=== PATIENT | female | born 1940 | race Caucasian/White ===

== ENCOUNTER → 2024-12-05 14:06 | Outpatient (REF) | payer MEDICARE, SELFPAY | LOC: OLABN 14:06 | PROVIDERS: ATTENDING PHYSICIAN Student in an Organized Health Care Education/Training Program | DX: R09.89 Other specified symptoms and signs involving the circulatory and respiratory systems (principal) | CPT/HCPCS: 87502 ==

== ENCOUNTER 2024-12-10 16:21 | Inpatient (IN) | payer MEDICARE, SELFPAY ==
[2024-12-10] VITALS (33 sets, daily range): BP systolic 99–176; BP diastolic 49–119; PULSE 2–120; BMI 25.9; BMI 24.0
--- NOTE | 2024-12-10 14:06 | ED.GENMED ---
History of Present Illness
<Jazmine Alexander PA-C - Last Filed: 12/10/24 21:33>
General
Chief Complaint: Breathing Problem
Source: patient and ambulance crew
Exam Limitations: clinical condition
Time Seen by Provider: 12/10/24 13:55
Nursing documentation reviewed up to this point in time: agreed with
History of Present Illness
History of Present Illness:
Patient is an 84-year-old female with history hypertension, with pacemaker presented to the emergency department via EMS for shortness of breath. Per EMS�patient tested positive for influenza about 1 week ago and completed a 5-day course of
Tamiflu. Today patient with increasing shortness of breath. She was 80% on room air. Sent to the emergency department.
Patient unable to contribute much to history given clinical condition and shortness of breath.
Patient did receive a DuoNeb and 125 Solu-Medrol en route via EMS.
Past History
<Jazmine Alexander PA-C - Last Filed: 12/10/24 21:33>
Past History
ED Past Medical History: Arrthythmia (A fib), HTN and Other (Osteoarthritis)
ED Past Surgical History: Appendectomy, Cardiac (Pacemaker/defibrillator) and Gynecological
Social History
Tobacco: Former smoker
Alcohol: None
Drug: None
Living: with family
Review of Systems
<Jazmine Alexander PA-C - Last Filed: 12/10/24 21:33>
Review of Systems
Allergies reviewed?: Yes
All Other Systems: ROS reviewed and negative except as documented in HPI and ROS
Phy Exam
<Jazmine Alexander PA-C - Last Filed: 12/10/24 21:33>
Physical Exam
Physical Exam:
Vitals: Hypoxic, tachycardic, tachypneic, hypertensive afebrile.
General: Patient is acutely ill appearing, tachypneic with increased respiratory effort
Skin: Warm and dry, no rashes or lesions
Head: Normocephalic, atraumatic
Eyes: Sclera nonicteric. EOMs intact. No nystagmus.
Throat: Protecting airway
Neck: Normal ROM, no cervical spine tenderness, no meningismus
Cardiac: Tachycardic, irregularly irregular rhythm, no murmurs.
Pulm: Hypoxic O2 80% on room air. Increased respiratory effort. Diminished breath sounds bilaterally with scattered rhonchi.
Abdomen: No abdominal tenderness.
Extremities: No evidence of cyanosis or edema. Palpable distal pulses
Neuro: No focal deficits
Psychiatric: Normal affect.
Scores
<Jazmine Alexander PA-C - Last Filed: 12/10/24 21:33>
Heart Failure Risk
Heart Failure Risk Score: Yes
History of Stroke or TIA: No
History of intubation for respiratory distress: No
Heart rate on ED arrival >/= 110: Yes
SaO2 <90% on arrival on room air: Yes
HR >/=110 during 3min walk test (or too ill to perform test): Yes
ECG has acute ischemic changes: Yes
Urea >/=12mmol/L (BUN 33.6mg/dL): No
Serum CO2>/=35mmol/L: Yes
Troponin I or T elevated to [place] Level (0.4mg/dL): No
NT-proBNP >/=5,000ng/L (5,000pg/ml): Yes
HF Risk Score: 8
Admission Status: VERY HIGH RISK 81.2% Consider admission to hospital
Course
<Jazmine Alexander PA-C - Last Filed: 12/10/24 21:33>
Orders/Labs/Results
Orders:
Orders
12/10/24 14:02
Electrocardiogram (*1) Urgent
Reason for Study: Shortness of Breath
EKG- Treatment ONCE
pacemaker [Interrogate Pacemaker- Treatment] ONCE
Ipratropium/Albuterol Sulfate [Duoneb] 3 ml INH R NOW STA
12/10/24 14:03
Electrocardiogram (*1) Urgent
Reason for Study: Other
Other Reason for Exam: Respiratory Distress
Cardiac Monitoring- Treatment ONCE
IV Insert/Care/Rem.- Treatment PRN
O2 Therapy [RESP] Urgent
Titrate/Wean O2 to maintain O2 sat greater than (%): 93
Special Instructions: TO MAINTAIN CONTINUOUS O2 SATS >/= 93%
Pulse Ox/cont/shift [RESP] Urgent
Quantity: 1
Special Instructions: continuous pulse ox
12/10/24 14:05
CR Chest Portable - 1 View Urgent
Comment:
Reason For Exam: sob, influenza +
Reason Study Needs to be Portable: Patient Unstable
12/10/24 14:12
COVID-19 Antigen Urgent
Source: Nasal Swab
Complete Blood Count/With Diff Urgent
Comprehensive Metabolic Panel Urgent
Lactic Acid Q4H
Comment: CANCEL 2nd LACTIC ACID IF 1st LACTIC ACID IS LESS THAN 2
NT-proBNP Urgent
Troponin I Urgent
Blood Culture Q30M
JACOB Source: Blood/Venous
Specimen Description:
Influenza A+B Rapid Molecular Urgent
JACOB Source: Nasal Swab
Specimen Description:
12/10/24 14:23
Blood Culture Q30M
JACOB Source: Blood/Venous
Specimen Description:
12/10/24 14:35
0.9% Sodium Chloride 1000 ml [Nss] 1,000 ml IV BOLUS
Piperacillin/Tazo 4.5 Gram [Zosyn] 4.5 gram in 100 ml IV NOW
12/10/24 14:37
Arterial Blood Gas Urgent
%Oxygen/Room Air: 80
12/10/24 15:21
Furosemide [Lasix] 40 mg IV NOW STA
12/10/24 15:22
Rectal Temp- Treatment ONCE
12/10/24 15:27
Acetaminophen [Tylenol] 650 mg .ROUTE .STK-MED ONE
Acetaminophen [Tylenol] 650 mg PO NOW STA
12/10/24 15:34
Electrocardiogram (*1) Urgent
Reason for Study: Shortness of Breath
EKG- Treatment ONCE
12/10/24 15:51
Admit/Transfer Patient As Directed
Co-Sign Provider:
Level of Care: Inpatient admission
Assign to:: IMU- Intermediate Care
Physician / Group: Rigo Kingston
Diagnosis: Hypoxic resp failure, bacterial pna
Reason for Hospitalization: Hypoxic resp failure, bacterial pna
Expected length of stay greater than two midnights?: Yes
ELOS- Estimated Length of Stay in days: 3
I certify the patient meets the requirements for IP care: Yes
12/10/24 15:52
PRN Pain Medication Management As Directed
May give lesser potent ordered pain med per pt: Yes
preference::
Protocol:: Medication orders for pain may be administered in a
manner that supports deferring to patient preference
when the pt is:
- Requesting an ordered lesser potent pain medication.
Least to most potent pain medications are defined
as: acetaminophen < NSAID < tramadol < opioids
(morphine, oxycodone, hydromorphone).
- Requesting a lesser dose of the same medication IF
ORDERED.
- Requesting a less intrusive route of administration
if both routes are prescribed by the provider (PO <
IV).
12/10/24 15:54
Code Status As Directed
Resuscitation Status: Full Code
12/10/24 17:18
Troponin I Urgent
12/10/24 20:00
Dexamethasone Sod Phosphate [Decadron] 4 mg IV Q8H
12/10/24 20:33
Acetaminophen [Tylenol] 650 mg PO Q4HPRN PRN
Apixaban [Eliquis] 2.5 mg PO BID
Ipratropium/Albuterol Sulfate [Duoneb] 3 ml INH R QIDPRN PRN
Metoprolol [Lopressor] 25 mg PO BID
Saccharomyces Boulardii [Florastor] 250 mg PO QPM
Vancomycin [Vancocin] 1,750 mg 0.9% Sodium Chloride 500 ml [Nss] 500 ml IV ONCE
12/10/24 20:33
Echo 2D MMode Color/Doppler Routine
Reason for Study: HF
Respiratory Culture/Gram Stain Routine
JACOB Source: Sputum
Specimen Description:
Comment: IF NOT OBTAINED IN ED
Activity As Directed
Activity Level: With Assistance
Intake/ Output As Directed
Frequency: Per unit guidelines
Vital Signs As Directed
Frequency: Per unit guidelines
O2 Therapy [RESP] Routine
Titrate/Wean O2 to maintain O2 sat greater than (%): 88
Speech Therapy Eval & Treat Routine
12/10/24 20:45
Lactic Acid Q4H
Comment: repeat q4 hours x 4 or until less than 2 mmol/L
Venous Blood Gas Routine
%Oxygen/Room Air: NC
12/10/24 22:00
Piperacillin/Tazo 4.5 Gram [Zosyn] 4.5 gram in 100 ml IV Q6H
12/11/24 00:33
Lactic Acid Q4H
Comment: repeat q4 hours x 4 or until less than 2 mmol/L
12/11/24 04:33
Lactic Acid Q4H
Comment: repeat q4 hours x 4 or until less than 2 mmol/L
12/11/24 06:00
Complete Blood Count/No Diff IN AM
12/11/24 08:00
Amiodarone [Pacerone] 200 mg PO DAILY
12/11/24 08:33
Lactic Acid Q4H
Comment: repeat q4 hours x 4 or until less than 2 mmol/L
12/12/24 06:00
Complete Blood Count/No Diff IN AM
12/13/24 06:00
Complete Blood Count/No Diff IN AM
Abnormal Lab Results
12/10/24 12/10/24
14:12 14:37
WBC 24.6 H 10^3/uL
(4.8-10.8)
MCV 100.7 H fL
(81.0-99.0)
MCH 32.8 H pg
(27.0-31.0)
MCHC 32.6 L g/dL
(33.0-37.0)
RDW 14.6 H %
(11.5-14.5)
Abs Immat Gran (auto) 0.3 H 10^3/uL
(0-0.05)
Absolute Neuts (auto) 21.3 H 10^3/uL
(1.4-6.5)
Absolute Monos (auto) 1.5 H 10^3/uL
(0.1-0.6)
Immature Gran % 1.3 H %
(0-0.5)
Neutrophils % 86.6 H %
(42.2-75.2)
Lymphocytes % 5.8 L %
(20.5-51.1)
pH 7.31 L
(7.35-7.45)
pCO2 71 H* mmHg
(32-35)
HCO3 35.7 H mmol/L
(21-28)
Chloride 96 L mmol/L
(98-107)
Carbon Dioxide 37 H mmol/L
(22-30)
BUN 25 H mg/dl
(7-17)
Glucose 157 H mg/dl
(70-99)
Troponin I 0.092 H* ng/ml
Albumin 3.3 L g/dl
(3.5-5.0)
12/10/24 14:12
12/10/24 14:12
Vital Signs
Initial and Last Documented VS:
Initial Vital Signs
Temp Pulse Resp BP Pulse Ox
98.4 F 132 19 176/105 80
12/10/24 14:04 12/10/24 14:04 12/10/24 14:04 12/10/24 14:04 12/10/24 14:04
Last Documented Vital Signs
Temp Pulse Resp BP Pulse Ox
100.1 F 85 16 104/49 96
12/10/24 15:24 12/10/24 20:15 12/10/24 20:15 12/10/24 20:15 12/10/24 19:15
<Mustapha Abdul, - Last Filed: 12/10/24 14:14>
Orders/Labs/Results
Orders:
Orders
12/10/24 14:02
Electrocardiogram (*1) Urgent
Reason for Study: Shortness of Breath
EKG- Treatment ONCE
pacemaker [Interrogate Pacemaker- Treatment] ONCE
Ipratropium/Albuterol Sulfate [Duoneb] 3 ml INH R NOW STA
12/10/24 14:03
Electrocardiogram (*1) Urgent
Reason for Study: Other
Other Reason for Exam: Respiratory Distress
Cardiac Monitoring- Treatment ONCE
IV Insert/Care/Rem.- Treatment PRN
O2 Therapy [RESP] Urgent
Titrate/Wean O2 to maintain O2 sat greater than (%): 93
Special Instructions: TO MAINTAIN CONTINUOUS O2 SATS >/= 93%
Pulse Ox/cont/shift [RESP] Urgent
Quantity: 1
Special Instructions: continuous pulse ox
12/10/24 14:05
CR Chest Portable - 1 View Urgent
Comment:
Reason For Exam: sob, influenza +
Reason Study Needs to be Portable: Patient Unstable
12/10/24 14:12
COVID-19 Antigen Urgent
Source: Nasal Swab
Complete Blood Count/With Diff Urgent
Comprehensive Metabolic Panel Urgent
Lactic Acid Q4H
Comment: CANCEL 2nd LACTIC ACID IF 1st LACTIC ACID IS LESS THAN 2
NT-proBNP Urgent
Troponin I Urgent
Blood Culture Q30M
JACOB Source: Blood/Venous
Specimen Description:
Influenza A+B Rapid Molecular Urgent
JACOB Source: Nasal Swab
Specimen Description:
12/10/24 14:23
Blood Culture Q30M
JACOB Source: Blood/Venous
Specimen Description:
12/10/24 14:35
0.9% Sodium Chloride 1000 ml [Nss] 1,000 ml IV BOLUS
Piperacillin/Tazo 4.5 Gram [Zosyn] 4.5 gram in 100 ml IV NOW
12/10/24 14:37
Arterial Blood Gas Urgent
%Oxygen/Room Air: 80
12/10/24 15:21
Furosemide [Lasix] 40 mg IV NOW STA
12/10/24 15:22
Rectal Temp- Treatment ONCE
12/10/24 15:27
Acetaminophen [Tylenol] 650 mg .ROUTE .STK-MED ONE
Acetaminophen [Tylenol] 650 mg PO NOW STA
12/10/24 15:34
Electrocardiogram (*1) Urgent
Reason for Study: Shortness of Breath
EKG- Treatment ONCE
12/10/24 15:51
Admit/Transfer Patient As Directed
Co-Sign Provider:
Level of Care: Inpatient admission
Assign to:: IMU- Intermediate Care
Physician / Group: Rigo Kingston
Diagnosis: Hypoxic resp failure, bacterial pna
Reason for Hospitalization: Hypoxic resp failure, bacterial pna
Expected length of stay greater than two midnights?: Yes
ELOS- Estimated Length of Stay in days: 3
I certify the patient meets the requirements for IP care: Yes
12/10/24 15:52
PRN Pain Medication Management As Directed
May give lesser potent ordered pain med per pt: Yes
preference::
Protocol:: Medication orders for pain may be administered in a
manner that supports deferring to patient preference
when the pt is:
- Requesting an ordered lesser potent pain medication.
Least to most potent pain medications are defined
as: acetaminophen < NSAID < tramadol < opioids
(morphine, oxycodone, hydromorphone).
- Requesting a lesser dose of the same medication IF
ORDERED.
- Requesting a less intrusive route of administration
if both routes are prescribed by the provider (PO <
IV).
12/10/24 15:54
Code Status As Directed
Resuscitation Status: Full Code
12/10/24 17:18
Troponin I Urgent
12/10/24 20:00
Dexamethasone Sod Phosphate [Decadron] 4 mg IV Q8H
12/10/24 20:33
Acetaminophen [Tylenol] 650 mg PO Q4HPRN PRN
Apixaban [Eliquis] 2.5 mg PO BID
Ipratropium/Albuterol Sulfate [Duoneb] 3 ml INH R QIDPRN PRN
Metoprolol [Lopressor] 25 mg PO BID
Saccharomyces Boulardii [Florastor] 250 mg PO QPM
Vancomycin [Vancocin] 1,750 mg 0.9% Sodium Chloride 500 ml [Nss] 500 ml IV ONCE
12/10/24 20:33
Echo 2D MMode Color/Doppler Routine
Reason for Study: HF
Respiratory Culture/Gram Stain Routine
JACOB Source: Sputum
Specimen Description:
Comment: IF NOT OBTAINED IN ED
Activity As Directed
Activity Level: With Assistance
Intake/ Output As Directed
Frequency: Per unit guidelines
Vital Signs As Directed
Frequency: Per unit guidelines
O2 Therapy [RESP] Routine
Titrate/Wean O2 to maintain O2 sat greater than (%): 88
Speech Therapy Eval & Treat Routine
12/10/24 20:45
Lactic Acid Q4H
Comment: repeat q4 hours x 4 or until less than 2 mmol/L
Venous Blood Gas Routine
%Oxygen/Room Air: NC
12/10/24 22:00
Piperacillin/Tazo 4.5 Gram [Zosyn] 4.5 gram in 100 ml IV Q6H
12/11/24 00:33
Lactic Acid Q4H
Comment: repeat q4 hours x 4 or until less than 2 mmol/L
12/11/24 04:33
Lactic Acid Q4H
Comment: repeat q4 hours x 4 or until less than 2 mmol/L
12/11/24 06:00
Complete Blood Count/No Diff IN AM
12/11/24 08:00
Amiodarone [Pacerone] 200 mg PO DAILY
12/11/24 08:33
Lactic Acid Q4H
Comment: repeat q4 hours x 4 or until less than 2 mmol/L
12/12/24 06:00
Complete Blood Count/No Diff IN AM
12/13/24 06:00
Complete Blood Count/No Diff IN AM
Abnormal Lab Results
12/10/24 12/10/24
14:12 14:37
WBC 24.6 H 10^3/uL
(4.8-10.8)
MCV 100.7 H fL
(81.0-99.0)
MCH 32.8 H pg
(27.0-31.0)
MCHC 32.6 L g/dL
(33.0-37.0)
RDW 14.6 H %
(11.5-14.5)
Abs Immat Gran (auto) 0.3 H 10^3/uL
(0-0.05)
Absolute Neuts (auto) 21.3 H 10^3/uL
(1.4-6.5)
Absolute Monos (auto) 1.5 H 10^3/uL
(0.1-0.6)
Immature Gran % 1.3 H %
(0-0.5)
Neutrophils % 86.6 H %
(42.2-75.2)
Lymphocytes % 5.8 L %
(20.5-51.1)
pH 7.31 L
(7.35-7.45)
pCO2 71 H* mmHg
(32-35)
HCO3 35.7 H mmol/L
(21-28)
Chloride 96 L mmol/L
(98-107)
Carbon Dioxide 37 H mmol/L
(22-30)
BUN 25 H mg/dl
(7-17)
Glucose 157 H mg/dl
(70-99)
Troponin I 0.092 H* ng/ml
Albumin 3.3 L g/dl
(3.5-5.0)
12/10/24 14:12
12/10/24 14:12
Vital Signs
Initial and Last Documented VS:
Initial Vital Signs
Temp Pulse Resp BP Pulse Ox
98.4 F 132 19 176/105 80
12/10/24 14:04 12/10/24 14:04 12/10/24 14:04 12/10/24 14:04 12/10/24 14:04
Last Documented Vital Signs
Temp Pulse Resp BP Pulse Ox
100.1 F 85 16 104/49 96
12/10/24 15:24 12/10/24 20:15 12/10/24 20:15 12/10/24 20:15 12/10/24 19:15
<Jazmine Alexander PA-C - Last Filed: 12/10/24 21:33>
MDM/Problems Addressed
Differential Diagnosis Includes:
Not limited to: Sepsis, pneumonia, pneumothorax, acute CHF exacerbation, acute COPD exacerbation, etc.
MDM/Problems Addressed:
84-year-old female with history as documented presenting via nursing facility with increased shortness of breath, found to be hypoxic to 80% on room air earlier today. Patient was influenza +1-week ago and completed 5-day course of Tamiflu.
Patient given DuoNeb and Solu-Medrol and route via EMS patient hypoxic on arrival, placed on 6 L nasal cannula. On exam�patient tachypneic and tachycardic with clear increased work of breathing. Breath sounds diminished with scattered rhonchi
bilaterally. No lower extremity edema. Ultimately�suspect likely pneumonia given recent URI. However�will check labs, ABG, troponin, BNP. Will obtain portable chest x-ray. Will give DuoNeb. Will monitor closely and reassess.
Update: Into reassess patient at bedside frequently. She does appear more comfortable following DuoNeb, currently on 6 L nasal cannula. Labs reviewed leukocytosis of 24.6. Troponin elevated to 0.092 which I suspect likely secondary to demand
ischemia from hypoxia. BNP elevated to 9440. Patient found to be influenza positive in the emergency department. Chest x-ray reviewed which shows suspected left lower lobe pneumonia and pulmonary edema. Overall impression is likely sepsis
secondary to pneumonia with acute CHF exacerbation. Given patient's degree of fluid overload�will give dose of IV Lasix and hold IV fluids for now. Patient has been stable on 6 L nasal cannula. ABG pending.
Update: ABG reviewed. pH of 7.31 with CO2 of 71. Will initiate BiPAP.Patient will require admission for continued IV antibiotics and respiratory support. Patient excepted to hospitalist service.
Chronic conditions affecting care:
Hypertension, CHF
Acute Exacerbation and/or Progression of Chronic Illness:
Acutely hypertensive, acute CHF exacerbation
<Jazmine Alexander PA-C - Last Filed: 12/10/24 21:33>
*Radiology
Radiology exam reviewed: preliminary read by ED provider (Reviewed by me-left lower lobe infiltrate with pulmonary edema)
*EKG
Interpreted by ED Provider?: Yes
EKG Intrepretation Date: 12/10/24
Interpretation: abnormal
Comparison EKG: changes noted
Heart Rate: 124
Rate: tachycardiac
Rhythm: a-fib
Barnard: normal axis
Interval: normal QT interval
Ischemia: non-specific ST changes
<Mustapha Abdul DO - Last Filed: 12/10/24 14:14>
*Radiology
Radiology exam reviewed: preliminary read by ED provider
*Pulse Oximetry
Patient hypoxic: yes
*Steward/Stewardess Smoke Room Interpretation
Rate: tachycardiac
Interpretation: abnormal
Heart Rate: 125
*Critical Care Note
Total Time (30-74mins, 75-104mins- exclusive of procedures): 32
<Jazmine Alexander PA-C - Last Filed: 12/10/24 21:33>
Patient Management
Discussion with other providers: Hospitalist
Escalation/DeEscalation of care consider admission/obs:
Admit for IV antibiotics, respiratory support
ED Attending Note
<Jazmine Alexander PA-C - Last Filed: 12/10/24 21:33>
-
Portions of this chart may have been created with voice recognition software.� Occasional wrong word or��sound alike� substitutions may have occurred due to the inherent limitations of voice recognition software.
<Mustapha Abdul DO - Last Filed: 12/10/24 14:14>
ED Attending Note
Patient seen and examined by attending physician: Yes
I performed the substantive portion of visit, reviewed & personally made and approve the management plan that is documented in note by myself or ALE.: Yes
ED Attending Note:
Seen with PA examined independently 84-year-old female from [facility] apparently diagnosed with the flu treated with Tamiflu, here she is tachypneic tachycardic rhonchorous hypertensive JVD no lower extremity edema,
requiring 6 L of oxygen, plan will be DuoNebs supplemental oxygen ABG follow closely
Discharge Plan
Departure
Patient Disposition: Admit
Date of Disposition: 12/10/24
Time of Disposition: 15:27
Admit to: ICU
Presentation/result/management discussed w/ accepting MD/DO: Hospitalist
Covid-19: Negative COVID-19
Discharge Problem:
Acute hypoxic respiratory failure, Acute exacerbation of CHF (congestive heart failure), Left lower lobe pneumonia, Influenza A, Sepsis
Interventions
Interventions:
*General Assessment Last Done: 12/10/24 14:31
ED- Fall Risk Assessment Last Done: 12/10/24 14:31
*ED COVID-19 Vaccine History Last Done: 12/10/24 14:32
ED- Cardiac Assessment Last Done: 12/10/24 14:31
ED- Pulmonary Assessment Last Done: 12/10/24 14:31
[2024-12-10] MEDS: DUONEB 3 ML INH (14:18)
[2024-12-10 14:29] LABS: Mean Corp Hgb Conc. 32.6 g/dL (33.0-37.0); Mean Corpuscular Hgb 32.8 pg (27.0-31.0); Mean Corpuscular Volume 100.7 fL (81.0-99.0); Mean Platelet Volume 9.4 fL (7.4-10.4); Platelet Count 386 10^3/uL (130-400); Red Blood Cell Count 4.27 10^6/uL (4.20-5.40); Red Cell Dist. Width 14.6 % (11.5-14.5); White Blood Cell Count 24.6 10^3/uL (4.8-10.8)
[2024-12-10 14:41] LABS: COVID-19 Antigen Negative (Negative); Lactic Acid 1.2 mmol/L (0.7-2.0)
[2024-12-10 14:45] LABS: ALT (SGPT) 22 U/L (0-35); AST (SGOT) 26 U/L (14-36); Albumin 3.3 g/dl (3.5-5.0); Alkaline Phosphatase 109 U/L (38-126); Blood Urea Nitrogen 25 mg/dl (7-17); Calcium 9.4 mg/dl (8.4-10.2); Carbon Dioxide 37 mmol/L (22-30); Chloride 96 mmol/L (98-107); Estimated Creatinine Clearance 54 ml/min; Glucose 157 mg/dl (70-99); Potassium 4.4 mmol/L (3.5-5.1); Sodium 139 mmol/L (135-145); Total Protein 6.6 g/dl (6.3-8.2); eGFR > 60.00
[2024-12-10 15:12] LABS: NT-proBNP 9440 pg/ml; Troponin I 0.092 ng/ml
[2024-12-10] MEDS: ZOSYN 100 IV (15:15)
[2024-12-10] MEDS: NSS 1000 IV (15:17)
[2024-12-10] MEDS: LASIX 40 MG IV (15:33)
[2024-12-10] MEDS: TYLENOL 650 MG PO (15:36)
[2024-12-10 15:46] LABS: % Basophils 0.2 % (0-2); % Immature Granulocytes 1.3 % (0-0.5); % Lymphocytes 5.8 % (20.5-51.1); % Monocytes 6.1 % (1.7-9.3); % Neutrophils 86.6 % (42.2-75.2); Absolute Basophils 0.1 10^3/uL (0-0.2); Absolute Immature Granulocytes 0.3 10^3/uL (0-0.05); Absolute Lymphocytes 1.4 10^3/uL (1.2-3.4); Absolute Monocytes 1.5 10^3/uL (0.1-0.6); Absolute Neutrophils 21.3 10^3/uL (1.4-6.5); Nucleated Red Blood Cells % 0 %
[2024-12-10 15:52] LABS: PO2 96 mmHg (83-108); pH 7.31 (7.35-7.45)
[2024-12-10 15:53] LABS: B.E. 6.8 mmol/L; HCO3 35.7 mmol/L (21-28); O2 Saturation % 96.8 % (94-98)
[2024-12-10 15:58] LABS: PCO2 71 mmHg (32-35)
--- NOTE | 2024-12-10 16:03 | HPS.HSE ---
Family Physician
-
Family Physician: Jv Snell DO
Chief Complaint
-
Shortness of breath/hypoxia
History of Present Illness
Patient is a 84-year-old female with past medical history of COPD, mild cognitive impairment, essential hypertension, history of atrial fibrillation, history of sick sinus syndrome post pacemaker placement, former smoker, history of appendectomy,
history of vaginal prolapse repair, right ankle fracture repair, left TKR, history of cholecystectomy was [facility] after patient was noted to be having worsening shortness of breath. Last week patient was diagnosed to have flu a in
facility and was treated with 5 days of Tamiflu course. For last 48 hours patient was getting progressively short of breath and was noted to hypoxic, patient was placed on oxygen 2 L nasal cannula and saturation was coming up to 91-93%, patient was
sent into [place] [facility] for further evaluation.
During my visit patient was somewhat sedated/encephalopathic and not able to provide detailed history. Also with patient known history of mild cognitive impairment review of systems limited. Patient does complain of feeling short of breath and
denies of using continuous oxygen at nursing facility. Denies of having any pleuritic cough/fever episodes. Patient denies of having any recent abdominal issues of nausea/vomiting/diarrhea.
Medical History
Past Medical History
Past Medical History: Reports Other
Additional Past Medical History:
COPD, mild cognitive impairment, essential hypertension, history of atrial fibrillation, history of sick sinus syndrome post pacemaker placement, former smoker, history of appendectomy, history of vaginal prolapse repair, right ankle fracture
repair, left TKR, history of cholecystectomy
Past Surgical History: Reports Other
Social History
Tobacco: Former Smoker
Alcohol: None
Drug: None
Living: Jail
Family History
Family History: Not pertinent
Allergies / Home Medications
Allergies reflects when Allergies were last updated in [facility] [employer]
Home Medications with original date entered in [facility] [employer]
Allergy/Medication List:
Allergies
Allergy/AdvReac Type Severity Reaction Status Date / Time
adhesive tape Allergy RASH/BLISTE Verified 04/10/22 17:13
RS
pollen extracts Allergy Coughing, Verified 07/19/22 10:39
sneezing
Home Medications
acetaminophen 325 mg tablet 650 mg PO Q4HPRN PRN mild pain 04/10/22
apixaban 2.5 mg tablet (Eliquis) 2.5 mg PO BID 04/17/22
Saccharomyces boulardii 250 mg capsule (Florastor) 250 mg PO QPM 12/10/24
amiodarone 200 mg tablet (Pacerone) 200 mg PO DAILY 12/10/24
bisacodyl 10 mg rectal suppository (Dulcolax (bisacodyl)) 10 mg SC [id number] PRN if no bm aftr mom 12/10/24
ipratropium 0.5 mg-albuterol 3 mg (2.5 mg base)/3 mL nebulization soln 3 ml inhalation R QID 12/10/24
magnesium hydroxide 400 mg/5 mL oral suspension (Milk of Magnesia) 2,400 mg PO HSPRN PRN constipation 12/10/24
metoprolol tartrate 25 mg tablet 25 mg PO BID 12/10/24
Review of Systems
-
A 12 point ROS was completed and negative except as noted: Yes
Physical Exam
Vital Signs
Vital Signs
Temp Pulse Resp BP Pulse Ox
100.1 F 118 30 120/80 93
12/10/24 15:24 12/10/24 15:33 12/10/24 14:06 12/10/24 15:33 12/10/24 14:25
Physical Exam
General: No Apparent Distress and Appears Chronically Ill
HEENT: Atraumatic and Oxygen
Respiratory: Clear
Cardiac: S1/S2 and Regular Rhythm; No Murmur or Rub
GI: Soft, Non Distended and Normal Bowel Sounds; No Organomegaly
Musculoskeletal: No Clubbing, No Cyanosis and No Edema
Skin: No Rash
Neuro: Awake and Nonfocal/grossly intact; No Oriented
Laboratory Results
-
12/10/24 14:12
12/10/24 14:12
Laboratory Results
pH 7.31 (7.35-7.45) L 12/10/24 14:37
pCO2 71 mmHg (32-35) H* 12/10/24 14:37
pO2 96 mmHg (83-108) 12/10/24 14:37
HCO3 35.7 mmol/L (21-28) H 12/10/24 14:37
Lactic Acid 1.2 mmol/L (0.7-2.0) 12/10/24 14:12
Total Bilirubin 1.0 mg/dl (0.2-1.3) 12/10/24 14:12
AST 26 U/L (14-36) 12/10/24 14:12
ALT 22 U/L (0-35) 12/10/24 14:12
Alkaline Phosphatase 109 U/L (38-126) 12/10/24 14:12
Troponin I 0.092 ng/ml H* 12/10/24 14:12
Impression/Plan
-
1. Acute hypoxic/hypercapnic respiratory failure
-ABG reviewed with pH 7.31, pCO2 of 71
-Chest x-ray showing diffuse infiltrates
-Patient placed on BiPAP, to be provided 4 hours of trial with repeat VBG in 4hrs
-Patient requiring 6 L oxygen through nasal cannula
-Of note patient was provided 1 L of NS and IV Lasix 40 mg by ER physician for concern of heart failure, will decide further dosing based on clinical response
2. Sepsis -POA
Recovering influenza A pneumonia
Superimposed bacterial pneumonia
-Patient have significant leukocytosis/tachycardia
-Suspecting superimposed bacterial pneumonia with requiring influenza A infection
-Patient already finished 5 days of Tamiflu course at assisted
-Patient have history of Pseudomonas/MSSA growth on sputum culture in past
-Got Zosyn in the ER, added vancomycin to regimen empirically
-Blood cultures ordered in ER, respiratory culture ordered if patient able to provide sample
3. COPD flareup
-With combined hypoxic hypercapnic respiratory failure started on IV dexamethasone
-No significant wheezing although poor air entry as well on exam
4. Paroxysmal A-fib with RVR
-Heart rate in range of 100-120
-Maintain on home dose of metoprolol
-Continue Eliquis
-If further heart rate increment happens will require Cardizem drip and cardiology consult
5. Elevated proBNP
-Last echocardiogram in 22 showing preserved ejection fraction. Increased right-sided pressures with pulmonary artery pressure of 45-50 mmHg
-Repeat echocardiogram ordered for this admission
mild cognitive impairment
essential hypertension
history of sick sinus syndrome post pacemaker placement
former smoker
history of appendectomy
history of vaginal prolapse repair
right ankle fracture repair
left TKR
history of cholecystectomy
DVT PPX - eliquis
Full code- NH records reviewed
Total time spent : 80 mins
I personally saw and examined the patient.
I have reviewed all diagnostic interpretations and treatment plans as written.
Time includes patient management by me, time spent at the patients bedside, time to review lab and imaging results, discussing patient care, documentation in the medical record, and time spent with the family or caregiver and discussing care plan
with RN/Consultants.
[2024-12-10 17:57] LABS: Troponin I 0.095 ng/ml
--- NOTE | 2024-12-10 18:17 | RESPNOTE ---
Respiratory: ABG done @ 1812 on Bilevel 12/5 cmH2O with 5 LPM O2, tolerated well.
[2024-12-10 18:20] LABS: HCO3 38.7 mmol/L (21-28); O2 Saturation % 98.4 % (94-98); PCO2 64 mmHg (32-35); PO2 86 mmHg (83-108); pH 7.39 (7.35-7.45)
[2024-12-10 20:54] LABS: Venous Blood Gas HCO3 38.7 mmol/L (22-27); Venous Blood Gas O2 Sat % 97.9 %; Venous Blood Gas pCO2 64 mmHg (35-48); Venous Blood Gas pH 7.39 (7.32-7.43); Venous Blood Gas pO2 85 mmHg (30-50)
[2024-12-10 21:07] LABS: Lactic Acid 1.4 mmol/L (0.7-2.0)
--- NOTE | 2024-12-10 21:09 | PHA.VAN.IN ---
Assessment
- Assessment
Renal Function: Appears similar to baseline (07/23/24 BASELINE SCR: 0.7)
Concomitant Antimicrobials: ZOSYN
- Previous Dosing Experience
Previous Regimen: NONE
AUC Dosing Plan
- Dosing Variables
Dosing Weight (kg): 64.2
Dosing CrCl (ml/min): 54
Vd coefficient (L/kg): 0.7
- Empiric Dosing
Initial / Loading Dose: 1750MG
Maintenance Regimen: 1GM IV Q24H
Estimated AUC (mcg*h/mL): 463
Estimated Peak (mcg*h/mL): 32.1
Estimated Trough (mcg/ml): 10.3
Estimated Half Life (H): 14.1
Pharmacokinetics Vancomycin I
- -
Patient Age: 84
Patient Sex: Female
Vancomycin Day #: 1
Indication: Pulmonary/Respiratory (SEPSIS)
Requesting Provider: Danita BOLDEN
Height / Weight:
Height 5 ft 2 in
Actual Weight 64.2 kg
- Vital Signs / Lab Results
Temp Pulse Resp BP Pulse Ox
100.1 F 85 16 104/49 96
12/10/24 15:24 12/10/24 20:15 12/10/24 20:15 12/10/24 20:15 12/10/24 19:15
Lab Results - Hematology
12/10/24
14:12
WBC 24.6 H
Lab Results - Chemistry
12/10/24
14:12
BUN 25 H
Creatinine 0.6
Estimated Creat Clear 54
Albumin 3.3 L
12/10/24 12/10/24 12/10/24
14:12 18:15 20:45
Lactic Acid 1.2 Cancelled 1.4
Microbiology Results
12/10/24 14:12 Influenza Types A & B (NITIN) - Final
Nasal Swab Influenza A Positive, NAAT
[2024-12-10] MEDS: DECADRON 4 MG IV (21:50)
[2024-12-10] MEDS: VANCOCIN 535 MG IV (21:56)
[2024-12-10] MEDS: FLORASTOR PO (21:57)
[2024-12-10] MEDS: ELIQUIS PO (21:57)
[2024-12-10] MEDS: LOPRESSOR PO (21:57)
--- NOTE | 2024-12-10 22:40 | PTCARENOTE ---
Received pt from ED via stretcher. Pt on BiPAP 12/5 with 5L O2; pulse ox 97%. Lungs are coarse and diminished throughout. Pt drowsy and lethargic. Unable to answer questions at this time. Vanco running through left FA on arrival. Foams placed on
b/l heels for protection; blanchable red on admission. AFib on the monitor; HR 119. BP 113/78 MAP 89). Pt resting in bed with call orozco in reach.
[2024-12-11] VITALS (16 sets, daily range): BP systolic 90–152; BP diastolic 55–105; PULSE 2–96
[2024-12-11] MEDS: ZOSYN 100 IV ×5 (00:17→21:11)
[2024-12-11 01:33] LABS: Troponin I 0.076 ng/ml
[2024-12-11] MEDS: DECADRON 4 MG IV ×3 (04:28→19:58)
[2024-12-11 05:07] LABS: Hematocrit 41.4 % (37.0-47.0); Hemoglobin 13.6 g/dL (12.0-16.0); Mean Corp Hgb Conc. 32.9 g/dL (33.0-37.0); Mean Corpuscular Hgb 32.7 pg (27.0-31.0); Mean Corpuscular Volume 99.5 fL (81.0-99.0); Mean Platelet Volume 9.3 fL (7.4-10.4); Platelet Count 325 10^3/uL (130-400); Red Blood Cell Count 4.16 10^6/uL (4.20-5.40); Red Cell Dist. Width 14.5 % (11.5-14.5); White Blood Cell Count 20.2 10^3/uL (4.8-10.8)
[2024-12-11] MEDS: VANCOCIN 200 IV (05:49)
--- NOTE | 2024-12-11 09:15 | PHA.VAN.FU ---
Vancomycin Assessment / Plan
- Assessment
Renal Function: Stable
WBC's are: Trending Down
Concomitant Antimicrobials: piperacillin/tazobactam
- Dosing Plan
Continue: Vanc 1000mg Q24H
- Monitoring Plan
No level(s) ordered at this time: consider levels in next few days
MRSA Screen: Ordered per protocol
- Follow Up
Pharmacy will continue to follow.
Vancomycin Follow UP
- -
Patient Age: 84
Patient Sex: Female
Vancomycin Day #: 2
Indication: Pulmonary/Respiratory
Requesting Provider: Danita Kingston
Pertinent Antimicrobial Allergies:
no pertinent antibiotic allergies
Height / Weight:
Height 5 ft 2 in
Actual Weight 59.5 kg
Pertinent Past Medical History: recent influenza
- Vital Signs / Lab Results
Temp Pulse Resp BP Pulse Ox
97.1 F 95 16 90/59 95
12/11/24 07:35 12/11/24 06:00 12/11/24 06:00 12/11/24 06:00 12/11/24 06:00
Lab Results - Hematology
12/10/24 12/11/24
14:12 04:40
WBC 24.6 H 20.2 H
Lab Results - Chemistry
12/10/24
14:12
BUN 25 H
Creatinine 0.6
Estimated Creat Clear 54
Albumin 3.3 L
12/10/24 12/10/24 12/10/24
14:12 18:15 20:45
Lactic Acid 1.2 Cancelled 1.4
12/11/24 12/11/24 12/11/24
00:33 04:33 08:33
Lactic Acid Cancelled Cancelled Cancelled
Microbiology Results
12/10/24 14:12 Influenza Types A & B (NITIN) - Final
Nasal Swab Influenza A Positive, NAAT
[2024-12-11] MEDS: LOPRESSOR 25 MG PO ×2 (09:23→19:58)
[2024-12-11] MEDS: ELIQUIS 2.5 MG PO ×2 (09:24→19:58)
[2024-12-11] MEDS: PACERONE 200 MG PO (09:24)
--- NOTE | 2024-12-11 11:31 | CM ---
Addendum entered by Julia Mims 12/11/24 12:09:
liaison from [facility] confirmed patient LTC and will need to be skilled upon return. Patient was able to do alot for herself at the facility and walked using a walker.
Original Note:
Patient seen at bedside, Patient is LTC at [facility] and CM called to Liaison Beatrice and left message requesting call back re prior level of functioning. Patient is MA pending at SNF and anticipate 15 days bed hold. PCP Dr. Snell. CM will continue to
follow for discharge planning needs.
Plan; return to SNF when medically appropriate.
--- NOTE | 2024-12-11 12:15 | PN.CDI ---
CDI
- -
CDI:
Physician Documentation Request
Admit Date: 12/10/24 16:21
Dear Doctor Thee,
Please review the following and provide your response in the progress notes.
Clinical Indicators:
Pt admitted with sepsis, influenza pneumonia, and acute respiratory failure.
12/10 ER: 'Troponin elevated to 0.092 which I suspect likely secondary to demand ischemia from hypoxia... Overall impression is likely sepsis secondary to pneumonia with acute CHF exacerbation..'
Laboratory Tests
12/10/24 12/10/24 12/11/24
14:12 17:18 00:55
Troponin I 0.092 H* 0.095 H* 0.076 H*
Based on the above, could you clarify in the progress notes, the appropriate diagnosis, if significant, that supports the above abnormalities and additional evaluation, monitoring and/or treatment rendered:
non-ischemic myocardial injury
type II NE (due to demand ischemia)
Insignificant abnormal lab values
Other
Use of terms such as suspected, likely, concern for, or probable (associated with a specific diagnosis that is being evaluated, monitored, or treated as if it exists) are acceptable and can be coded in the inpatient setting, when documented at the
time of discharge.
Thank you,
Sabi Gramajo RN, BSN
CDI Specialist
[place] [employer]
Please use your independent medical judgment in providing your response.
[2024-12-11 12:38] LABS: Blood Urea Nitrogen 25 mg/dl (7-17); Calcium 9.1 mg/dl (8.4-10.2); Chloride 92 mmol/L (98-107); Estimated Creatinine Clearance 54 ml/min; Glucose 120 mg/dl (70-99); Potassium 3.2 mmol/L (3.5-5.1); Sodium 138 mmol/L (135-145); eGFR > 60.00
[2024-12-11 13:11] LABS: Carbon Dioxide 34 mmol/L (22-30)
--- NOTE | 2024-12-11 13:33 | PTCARENOTE ---
respiratory at bedside. D/C bipap. otherwise no change in assessment.
--- NOTE | 2024-12-11 14:07 | PN.CDI ---
CDI
- -
CDI:
Physician Documentation Request
Admit Date: 12/10/24 16:21
Dear Doctor Thee,
Please review the following and provide your response in the progress notes.
Clinical Indicators:
Pt admitted with sepsis, influenza pneumonia, and acute respiratory failure.
12/10 assessment nurse practitioner: 'drowsy and lethargic'
12/10 H&P: 'During my visit patient was somewhat sedated/encephalopathic and not able to provide detailed history. Also with patient known history of mild cognitive impairment review of systems limited.'
Please specify the known or suspected type of the documented encephalopathy.
Metabolic
Septic
Toxic metabolic
Other
Use of terms such as suspected, likely, concern for, or probable (associated with a specific diagnosis that is being evaluated, monitored, or treated as if it exists) are acceptable and can be coded in the inpatient setting, when documented at the
time of discharge.
Thank you,
Sabi Gramajo RN, BSN
CDI Specialist
Please use your independent medical judgment in providing your response.
--- NOTE | 2024-12-11 14:33 | PTOTSP ---
Dysphagia Evaluation
Patient at an acute elevated risk for dysphagia and aspiration given sepsis secondary to PNA with acute hypoxic respiratory failure/tachypnea, COPD exacerbation, and baseline comorbidities (COPD, mild cognitive impairment). During this eval, at
least mild oral dysphagia without signs of pharyngeal dysphagia or aspiration noted - though cannot r/o silent aspiration bedside.
Recommend:
1. IDDSI Level 6 Soft and Bite Sized, Thin Liquids
2. Medications: in puree
3. Strategies: upright to 90 degrees, full supervision, assist with feeding for energy conservation, small single sips/bites, slow rate with breaks for breathing
4. Oral care 3x daily
5. Dysphagia tx at the acute care level. PILOT [employer]AT OPERATOR to f/u and determine if/when further instrumental swallowing assessment may be warranted.
--- NOTE | 2024-12-11 15:36 | W.PN.HOSP.TC ---
Today's Communication/Plan
-
continue abx
diet started
echo reviewed
maintain on O2 through NC
bipap at night
Assessment / Plan
Assessment / Plan
1. Acute hypoxic/hypercapnic respiratory failure
-ABG reviewed with pH 7.31, pCO2 of 71
-Chest x-ray showing diffuse infiltrates
-Of note patient was provided 1 L of NS and IV Lasix 40 mg by ER physician for concern of heart failure, will decide further dosing based on clinical response
-Patient tolerated BiPAP trial, mentation better. Taken off of BiPAP today
2. Sepsis -POA
Recovering influenza A pneumonia
Superimposed bacterial pneumonia
-Patient have significant leukocytosis/tachycardia
-Suspecting superimposed bacterial pneumonia with requiring influenza A infection
-Patient already finished 5 days of Tamiflu course at [facility]
-Patient have history of Pseudomonas/MSSA growth on sputum culture in past
-Got Zosyn in the ER, added vancomycin to regimen empirically
-Blood cultures ordered in ER, respiratory culture ordered if patient able to provide sample
3. COPD flareup
-With combined hypoxic hypercapnic respiratory failure started on IV dexamethasone
-No significant wheezing although poor air entry as well on exam
4. Paroxysmal A-fib with RVR
-Heart rate in range of 100-120
-Maintain on home dose of metoprolol
-Continue Eliquis
-If further heart rate increment happens will require Cardizem drip and cardiology consult
5. Elevated proBNP
-Last echocardiogram in 22 showing preserved ejection fraction. Increased right-sided pressures with pulmonary artery pressure of 45-50 mmHg
-Repeat echocardiogram this admission showed preserved ejection fraction, no diastolic dysfunction
6. Dysphagia
mild cognitive impairment
-Speech therapy evaluated on IDDSI 6 diet
essential hypertension
history of sick sinus syndrome post pacemaker placement
former smoker
history of appendectomy
history of vaginal prolapse repair
right ankle fracture repair
left TKR
history of cholecystectomy
DVT PPX - eliquis
Full code- [facility] records reviewed
Total time spent : 52 mins
I personally saw and examined the patient.
I have reviewed all diagnostic interpretations and treatment plans as written.
Time includes patient management by me, time spent at the patients bedside, time to review lab and imaging results, discussing patient care, documentation in the medical record, and time spent with the family or caregiver and discussing care plan
with RN/Consultants.
Anticipated Discharge: > 48 hours
Subjective/Interval History
-
Date of Service: December 11, 2024
Patient mentation better
Afebrile overnight
Able to tolerate BiPAP overnight
Not voicing any complaints
Objective Data
-
Labs:
Laboratory Results
12/11/24 12/11/24
04:40 11:39
WBC 20.2 H
Hgb 13.6
Hct 41.4
Plt Count 325
Sodium 138
Potassium 3.2 L D
Chloride 92 L
Carbon Dioxide 34 H
BUN 25 H
Creatinine 0.6
Glucose 120 H
Calcium 9.1
Vital Signs:
Vital Signs
Temp Pulse Resp BP Pulse Ox
96.9 F L 99 25 132/87 94
12/11/24 11:21 12/11/24 14:00 12/11/24 14:00 12/11/24 14:00 12/11/24 14:00
Review of Systems
-
Unable to obtain full review of systems at this time due to: Acuity
Physical Exam
-
General: Comfortable and Appears Chronically Ill
HEENT: Oxygen
Respiratory: Clear to Auscultation
Cardiac: Regular Rhythm and S1/S2; Negative Murmur or Rub
GI: Soft, Nontender and Nondistended
Musculoskeletal: No Edema
Neuro: Awake, Alert, No Motor Deficits and Nonfocal/Grossly Intact
Psych: Calm
[2024-12-11] MEDS: KCL 40 MEQ PO (15:38)
[2024-12-11] MEDS: FLORASTOR 250 MG PO (16:59)
--- NOTE | 2024-12-11 21:31 | PTCARENOTE ---
Caring for patient overnight. aaox3 pleasant. Denies pain. HWANG & orthopneic, bumped from 2L to 4L. NSR/av paced. Q2T. Purewick in place. Ivabx. Bed alarm on, call orozco in reach. Will monitor.
[2024-12-12] VITALS (12 sets, daily range): BP systolic 129–194; BP diastolic 58–108; PULSE 70; O2SAT 96; BMI 23.9
--- NOTE | 2024-12-12 03:55 | PTCARENOTE ---
Pt converted back to NSR.
[2024-12-12] MEDS: DECADRON 4 MG IV (04:22)
[2024-12-12] MEDS: ZOSYN 100 IV (04:22)
[2024-12-12 04:38] LABS: Hematocrit 43.2 % (37.0-47.0); Hemoglobin 13.7 g/dL (12.0-16.0); Mean Corp Hgb Conc. 31.7 g/dL (33.0-37.0); Mean Corpuscular Volume 100.9 fL (81.0-99.0); Mean Platelet Volume 9.2 fL (7.4-10.4); Platelet Count 382 10^3/uL (130-400); Red Blood Cell Count 4.28 10^6/uL (4.20-5.40); Red Cell Dist. Width 14.4 % (11.5-14.5); White Blood Cell Count 21.2 10^3/uL (4.8-10.8)
[2024-12-12] MEDS: VANCOCIN 200 IV (05:12)
[2024-12-12 05:14] LABS: Blood Urea Nitrogen 39 mg/dl (7-17); Calcium 9.2 mg/dl (8.4-10.2); Carbon Dioxide 35 mmol/L (22-30); Chloride 96 mmol/L (98-107); Estimated Creatinine Clearance 54 ml/min; Glucose 126 mg/dl (70-99); Potassium 4.3 mmol/L (3.5-5.1); Sodium 140 mmol/L (135-145); eGFR > 60.00
--- NOTE | 2024-12-12 09:09 | CM ---
Patient seen at bedside
Resides at [facility] pending
[facility]erral [facility]
PLAN: Return to SNF when medically stable
[2024-12-12] MEDS: ELIQUIS 2.5 MG PO ×2 (09:11→20:28)
[2024-12-12] MEDS: PACERONE 200 MG PO (09:11)
[2024-12-12] MEDS: LOPRESSOR 25 MG PO ×2 (09:11→20:28)
[2024-12-12] MEDS: UNASYN IV ×3 (09:18→21:24)
--- NOTE | 2024-12-12 09:54 | W.PN.HOSP.TC ---
Today's Communication/Plan
-
de-escalate abx
monitor T curve
decrease steroid dose
wean off o2 as possible
transfer med/surg
Assessment / Plan
Assessment / Plan
1. Acute hypoxic/hypercapnic respiratory failure
-ABG reviewed with pH 7.31, pCO2 of 71 at admission
-Chest x-ray showing diffuse infiltrates
-Of note patient was provided 1 L of NS and IV Lasix 40 mg by ER physician for concern of heart failure, will decide further dosing based on clinical response
-Patient currently on oxygen through nasal cannula. Continue wean off oxygen as possible
-Any signs of sedation patient will require repeat ABG/VBG on BiPAP trial.
2. Sepsis -POA
Recovering influenza A pneumonia
Superimposed bacterial pneumonia
-Patient have significant leukocytosis/tachycardia
-Suspecting superimposed bacterial pneumonia with requiring influenza A infection
-Patient already finished 5 days of Tamiflu course at [facility]
-Patient have history of Pseudomonas/MSSA growth on sputum culture in past
-Blood culture 1 set positive for gram-positive cocci in clusters. Expected to be contaminant/CONS
-Stop vancomycin and Zosyn, MRSA screen negative and patient not able to provide sputum
-Consolidate to Unasyn with further escalation for MRSA coverage if patient have any signs of non-improvement
3. COPD flareup
-Taper dexamethasone to oral steroids prednisone
-No significant wheezing although poor air entry as well on exam
4. Paroxysmal A-fib with RVR
-Heart rate in range of 100-120
-Maintain on home dose of metoprolol
-Continue Eliquis
-If further heart rate increment happens will require Cardizem drip and cardiology consult
5. Elevated proBNP
-Last echocardiogram in showing preserved ejection fraction. Increased right-sided pressures with pulmonary artery pressure of 45-50 mmHg
-Repeat echocardiogram this admission showed preserved ejection fraction, no diastolic dysfunction
6. Dysphagia
mild cognitive impairment
-Speech therapy evaluated on IDDSI 6 diet
essential hypertension
history of sick sinus syndrome post pacemaker placement
former smoker
history of appendectomy
history of vaginal prolapse repair
right ankle fracture repair
left TKR
history of cholecystectomy
DVT PPX - eliquis
Full code- [facility] records reviewed
Total time spent : 52 mins
Transfer to [facility]
Anticipated Discharge: > 48 hours
Subjective/Interval History
-
Date of Service: December 12, 2024
Patient resting comfortably in bed
Remains on oxygen through nasal cannula five 6 L
Patient hungry and requesting breakfast
Afebrile
No reported other acute complication
Objective Data
-
Labs:
Laboratory Results
12/12/24
04:28
WBC 21.2 H
Hgb 13.7
Hct 43.2
Plt Count 382
Sodium 140
Potassium 4.3 D
Chloride 96 L
Carbon Dioxide 35 H
BUN 39 H
Creatinine 0.6
Glucose 126 H
Calcium 9.2
Vital Signs:
Vital Signs
Temp Pulse Resp BP Pulse Ox
97.8 F 70 20 152/77 96
12/12/24 04:56 12/12/24 06:00 12/12/24 06:00 12/12/24 04:00 12/12/24 08:23
Review of Systems
-
Respiratory: Reports No Symptoms
Cardiac: Reports No Symptoms
Abdomen/GI: Reports No Symptoms
Physical Exam
-
General: Comfortable and Appears Chronically Ill
HEENT: Oxygen
Respiratory: Clear to Auscultation
Cardiac: Regular Rhythm and S1/S2; Negative Murmur or Rub
GI: Soft, Nontender and Nondistended
Musculoskeletal: No Edema
Neuro: Awake, Alert, No Motor Deficits and Nonfocal/Grossly Intact
Psych: Calm
--- NOTE | 2024-12-12 16:55 | PTCARENOTE ---
Assessment and care as documented. Confused at times. Weaned to 4L NC, sats in the mid 90's. Ringing appropriately, call orozco within reach. Bed alarm in place for safety.
[2024-12-12] MEDS: FLORASTOR 250 MG PO (17:06)
[2024-12-13] VITALS (17 sets, daily range): BP systolic 116–170; BP diastolic 53–106; PULSE 73; O2SAT 93
--- NOTE | 2024-12-13 03:02 | PTCARENOTE ---
Caring for pt overnight. aaox3, pleasant. denies pain. HWANG & orthopneic still. 2-4LNC. Q2T. bed alarm. Ivabx. Moist cough. Weak, remains in bed. No other issues at this time. Will monitor.
[2024-12-13] MEDS: UNASYN IV ×4 (05:05→21:50)
[2024-12-13 06:03] LABS: Hematocrit 41.3 % (37.0-47.0); Hemoglobin 12.7 g/dL (12.0-16.0); Mean Corp Hgb Conc. 30.8 g/dL (33.0-37.0); Mean Corpuscular Hgb 31.8 pg (27.0-31.0); Mean Corpuscular Volume 103.5 fL (81.0-99.0); Mean Platelet Volume 9.3 fL (7.4-10.4); Platelet Count 344 10^3/uL (130-400); Red Blood Cell Count 3.99 10^6/uL (4.20-5.40); Red Cell Dist. Width 14.2 % (11.5-14.5); White Blood Cell Count 15.8 10^3/uL (4.8-10.8)
[2024-12-13 06:20] LABS: Blood Urea Nitrogen 41 mg/dl (7-17); Chloride 93 mmol/L (98-107); Estimated Creatinine Clearance 54 ml/min; Glucose 119 mg/dl (70-99); Potassium 4.2 mmol/L (3.5-5.1); Sodium 138 mmol/L (135-145); eGFR > 60.00
[2024-12-13 06:56] LABS: Carbon Dioxide 41 mmol/L (22-30)
--- NOTE | 2024-12-13 09:00 | PTCARENOTE ---
pt assisted to side of the bed. Attempted to stand with walker and assist of 2; 2-3 attempts. Pt generally weak, very anxious, stating she felt as if she was falling. Pt assisted back to bed. Continuing to monitor
--- NOTE | 2024-12-13 09:12 | W.PN.HOSP.TC ---
Addendum entered and electronically signed by Rigo Kingston MD 12/13/24 16:48:
Add on to diagnosis list:
Acute toxic metabolic encephalopathy
Original Note:
Today's Communication/Plan
-
Maintained on IV Unasyn
continue wean off oxygen as possible
possible d/c to NH in 24-48hrs
Assessment / Plan
Assessment / Plan
1. 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
Metabolic alkalosis
-ABG reviewed with pH 7.31, pCO2 of 71 at admission
-Chest x-ray showing diffuse infiltrates
-Of note patient was provided 1 L of NS and IV Lasix 40 mg by ER physician for concern of heart failure, although Echo does not show any EF change.
-Patient currently on oxygen through nasal cannula. Continue wean off oxygen as possible
-Any signs of sedation patient will require repeat ABG/VBG on BiPAP trial.
-Patient likely have chronic hypercapnic resp failure with compensatory metabolic alkalosis
2. Sepsis -POA - Improving
Recovering influenza A pneumonia
Superimposed bacterial pneumonia
-Patient have significant leukocytosis/tachycardia
-Suspecting superimposed bacterial pneumonia with requiring influenza A infection
-Patient already finished 5 days of Tamiflu course at halfway
-Patient have history of Pseudomonas/MSSA growth on sputum culture in past
-Blood culture 1 set positive for gram-positive cocci in clusters. Expected to be contaminant/CONS
-Stop vancomycin and Zosyn, MRSA screen negative and patient not able to provide sputum
-Consolidate to Unasyn with re-escalation for MRSA coverage if patient have any signs of non-improvement
-WBC continue to trend down. Patient did not have any fever episode
3. COPD flareup
-Taper dexamethasone to oral steroids prednisone
-No significant wheezing although poor air entry as well on exam
4. Paroxysmal A-fib with RVR - Improved
-Heart rate in range of 100-120 at admit
-Maintain on home dose of metoprolol
-Continue Eliquis
-If further heart rate increment happens will require Cardizem drip and cardiology consult
5. Elevated proBNP
-Last echocardiogram in 22 showing preserved ejection fraction. Increased right-sided pressures with pulmonary artery pressure of 45-50 mmHg
-Repeat echocardiogram this admission showed preserved ejection fraction, no diastolic dysfunction
6. Dysphagia
mild cognitive impairment
-Speech therapy evaluated on IDDSI 6 diet
essential hypertension
history of sick sinus syndrome post pacemaker placement
former smoker
history of appendectomy
history of vaginal prolapse repair
right ankle fracture repair
left TKR
history of cholecystectomy
DVT PPX - eliquis
Full code- [place] records reviewed
Anticipated Discharge: 24 - 48 hours
Subjective/Interval History
-
Date of Service: December 13, 2024
Patient oxygen requirement down to 4 L thorough nasal cannula
Patient not voicing any significant complaints
Not dyspneic
Denies any abdominal problems
Objective Data
-
Labs:
Laboratory Results
12/13/24
05:17
WBC 15.8 H
Hgb 12.7
Hct 41.3
Plt Count 344
Sodium 138
Potassium 4.2
Chloride 93 L
Carbon Dioxide 41 H
BUN 41 H
Creatinine 0.6
Glucose 119 H
Calcium 9.0
Vital Signs:
Vital Signs
Temp Pulse Resp BP Pulse Ox
98.0 F 70 17 116/59 97
12/13/24 07:10 12/13/24 08:00 12/13/24 08:00 12/13/24 08:00 12/13/24 08:00
I&O
12/12/24 12/13/24 12/14/24
06:59 06:59 06:59
Output Total 400 / 400
Balance -400 / -400
Review of Systems
-
Unable to obtain full review of systems at this time due to: Dementia
Physical Exam
-
General: Comfortable and Appears Chronically Ill
HEENT: Oxygen (4l o2 NC)
Respiratory: Clear to Auscultation
Cardiac: Regular Rhythm and S1/S2; Negative Murmur or Rub
GI: Soft, Nontender and Nondistended
Musculoskeletal: No Edema
Neuro: Awake, Alert, No Motor Deficits and Nonfocal/Grossly Intact
Psych: Calm
[2024-12-13] MEDS: DELTASONE 40 MG PO (11:18)
[2024-12-13] MEDS: PACERONE 200 MG PO (11:19)
[2024-12-13] MEDS: LOPRESSOR 25 MG PO ×2 (11:19→20:39)
[2024-12-13] MEDS: ELIQUIS 2.5 MG PO ×2 (11:20→20:39)
--- NOTE | 2024-12-13 13:58 | PTCARENOTE ---
pt assisted to sit on side of bed for hygeine. pox dropping to 72% on 4L. Oxygen increased to 6L; pox returning to 93% after 5 mins and assisted back to supine position. Continuing to monitor
[2024-12-13] MEDS: FLORASTOR 250 MG PO (19:11)
[2024-12-14] VITALS (7 sets, daily range): BP systolic 153–179; BP diastolic 67–101
[2024-12-14] MEDS: UNASYN IV ×4 (04:33→21:28)
[2024-12-14 05:14] LABS: Blood Urea Nitrogen 38 mg/dl (7-17); Calcium 8.7 mg/dl (8.4-10.2); Chloride 94 mmol/L (98-107); Estimated Creatinine Clearance 54 ml/min; Glucose 140 mg/dl (70-99); Potassium 4.8 mmol/L (3.5-5.1); Sodium 140 mmol/L (135-145); eGFR > 60.00
[2024-12-14 05:54] LABS: Carbon Dioxide 38 mmol/L (22-30)
--- NOTE | 2024-12-14 09:38 | W.PN.HOSP.TC ---
Today's Communication/Plan
-
IV antibiotics.
Assessment / Plan
Assessment / Plan
Physical exam:
General: Well Developed, Well Nourished and No Apparent Distress
HEENT: Normocephalic, Atraumatic and Moist Mucous Membranes
Respiratory: Clear to Auscultation; Negative Wheezes, Rales or Rhonchi
Cardiac: Regular Rhythm and S1/S2
GI: Soft, Nontender and Nondistended
Musculoskeletal: No Clubbing, No Cyanosis and No Edema
Neuro: Awake, Alert and Oriented
Psych: Calm
A/P:
1. 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
Metabolic alkalosis
-ABG reviewed with pH 7.31, pCO2 of 71 at admission
-Chest x-ray showing diffuse infiltrates
-Of note patient was provided 1 L of NS and IV Lasix 40 mg by ER physician for concern of heart failure, although Echo does not show any EF change.
-Patient currently on oxygen through nasal cannula. Continue wean off oxygen as possible
-Any signs of sedation patient will require repeat ABG/VBG on BiPAP trial.
-Patient likely have chronic hypercapnic resp failure with compensatory metabolic alkalosis
2. Sepsis -POA - Improving
Recovering influenza A pneumonia
Superimposed bacterial pneumonia
-Patient have significant leukocytosis/tachycardia
-Suspecting superimposed bacterial pneumonia with requiring influenza A infection
-Patient already finished 5 days of Tamiflu course at half-way
-Patient have history of Pseudomonas/MSSA growth on sputum culture in past
-Blood culture 1 set positive for gram-positive cocci in clusters. Expected to be contaminant/CONS
-Stop vancomycin and Zosyn, MRSA screen negative and patient not able to provide sputum
-Consolidate to Unasyn with re-escalation for MRSA coverage if patient have any signs of non-improvement
-WBC continue to trend down. Patient did not have any fever episode. Cont IV antibiotics for another 24-48 hrs and change to oral.
3. COPD flareup
-Taper dexamethasone to oral steroids prednisone
-No significant wheezing although poor air entry as well on exam
4. Paroxysmal A-fib with RVR - Improved
-Heart rate in range of 100-120 at admit
-Maintain on home dose of metoprolol
-Continue Eliquis
-If further heart rate increment happens will require Cardizem drip and cardiology consult
5. Elevated proBNP
-Last echocardiogram in 22 showing preserved ejection fraction. Increased right-sided pressures with pulmonary artery pressure of 45-50 mmHg
-Repeat echocardiogram this admission showed preserved ejection fraction, no diastolic dysfunction
6. Dysphagia
mild cognitive impairment
-Speech therapy evaluated on IDDSI 6 diet
essential hypertension
history of sick sinus syndrome post pacemaker placement
former smoker
history of appendectomy
history of vaginal prolapse repair
right ankle fracture repair
left TKR
history of cholecystectomy
DVT PPX - eliquis
Full code- [place] records reviewed
Anticipated Discharge: 24 - 48 hours
Subjective/Interval History
-
Date of Service: December 14, 2024
Patient feels better today. Afebrile
Objective Data
-
Labs:
Laboratory Results
12/14/24
04:42
Sodium 140
Potassium 4.8
Chloride 94 L
Carbon Dioxide 38 H
BUN 38 H
Creatinine 0.6
Glucose 140 H
Calcium 8.7
Vital Signs:
Vital Signs
Temp Pulse Resp BP Pulse Ox
98.5 F 77 17 155/93 94
12/14/24 07:22 12/13/24 23:33 12/13/24 23:33 12/13/24 23:33 12/13/24 23:33
I&O
12/13/24 12/14/24 12/15/24
06:59 06:59 06:59
Intake Total 120 / 120
Output Total 400 / 400
Balance -400 / -400 120 / 120
[2024-12-14] MEDS: ELIQUIS 2.5 MG PO ×2 (10:23→21:17)
[2024-12-14] MEDS: PACERONE 200 MG PO (10:23)
[2024-12-14] MEDS: LOPRESSOR 25 MG PO ×2 (10:24→21:18)
[2024-12-14] MEDS: DELTASONE 40 MG PO (10:24)
--- NOTE | 2024-12-14 14:27 | PTCARENOTE ---
Report given to Neena NICHOLSON for transfer to room 2138. Family and patient notified of plan of care. Belongings to be sent with patient.
--- NOTE | 2024-12-14 14:28 | PTCARENOTE ---
Patient is atrial paced today, notified Dr. Barbour .
--- NOTE | 2024-12-14 17:24 | CM ---
Addendum entered by Kellie Menchaca RN 12/14/24 17:31:
Plan watch for O2 needs at d/c.
Original Note:
Patient from [facility]. O2 4L. ST - Dysphagia diet. Receiving IV Abx. PT/OT recommend skilled rehab.
Message from Dr Barbour; probably ready for d/c in 24-48 hrs depending on clinical course.
Spoke with Beatrice, [facility]; clinical update provided. The patient was not on O2 at [facility]. They are able to accept the patient back when medically ready. The for report [phone], fax [phone].
Plan return to [facility] when medically ready.
[2024-12-14] MEDS: FLORASTOR 250 MG PO (17:54)
[2024-12-15] VITALS (8 sets, daily range): BP systolic 136–190; BP diastolic 64–96; PULSE 70; O2SAT 92
[2024-12-15] MEDS: TYLENOL 650 MG PO (01:38)
[2024-12-15] MEDS: UNASYN IV ×2 (03:41→09:32)
[2024-12-15] MEDS: LOPRESSOR 2.5 MG IV (04:11)
[2024-12-15 07:22] LABS: % Basophils 0.1 % (0-2); % Immature Granulocytes 0.9 % (0-0.5); % Lymphocytes 3.5 % (20.5-51.1); % Monocytes 5.9 % (1.7-9.3); % Neutrophils 89.6 % (42.2-75.2); Absolute Immature Granulocytes 0.2 10^3/uL (0-0.05); Absolute Lymphocytes 0.6 10^3/uL (1.2-3.4); Absolute Neutrophils 15.3 10^3/uL (1.4-6.5); Hematocrit 40.6 % (37.0-47.0); Mean Corpuscular Hgb 32.5 pg (27.0-31.0); Mean Corpuscular Volume 101.5 fL (81.0-99.0); Mean Platelet Volume 9.5 fL (7.4-10.4); Nucleated Red Blood Cells % 0 %; Platelet Count 332 10^3/uL (130-400); Red Cell Dist. Width 13.7 % (11.5-14.5); White Blood Cell Count 17.1 10^3/uL (4.8-10.8)
[2024-12-15 07:44] LABS: Blood Urea Nitrogen 26 mg/dl (7-17); Calcium 8.8 mg/dl (8.4-10.2); Chloride 90 mmol/L (98-107); Estimated Creatinine Clearance 54 ml/min; Glucose 92 mg/dl (70-99); Potassium 4.5 mmol/L (3.5-5.1); Sodium 135 mmol/L (135-145); eGFR > 60.00
[2024-12-15] MEDS: ELIQUIS 2.5 MG PO ×2 (08:17→20:51)
[2024-12-15] MEDS: LOPRESSOR 25 MG PO ×2 (08:18→20:51)
[2024-12-15] MEDS: PACERONE 200 MG PO (08:18)
[2024-12-15] MEDS: DELTASONE 40 MG PO (08:18)
[2024-12-15 08:41] LABS: Carbon Dioxide 40 mmol/L (22-30)
--- NOTE | 2024-12-15 09:44 | W.PN.HOSP.TC ---
Today's Communication/Plan
-
Chest x-ray. IV Lasix. Broaden IV antibiotics. Pulmonary consult
Assessment / Plan
Assessment / Plan
Physical exam:
General: Acutely ill
HEENT: Normocephalic, Atraumatic and Moist Mucous Membranes
Respiratory: Bilateral coarse crackles; Negative Wheezes; Some scattered Rhonchi
Cardiac: Irregular rate and rhythm and S1/S2
GI: Soft, Nontender and Nondistended
Musculoskeletal: Bilateral lower extremity edema. No Clubbing, No Cyanosis
Neuro: Awake, Alert and Oriented, no gross neurological deficits. Generalized weakness
Psych: Calm
A/P:
1. Acute on chronic hypoxic hypercapnic respiratory failure
Repeated chest x-ray today and shows evidence of volume overload-suspect acute on chronic diastolic congestive heart failure. Cannot tell if pneumonia is worse
Stat Lasix 40 mg IV x 1
BNP decreased from before but still elevated
Will start with Lasix 40 mg IV twice daily
Noticed hypercapnic upon admission at 71 but down to 64 later on.
Reviewed latest echocardiogram
Continue IV antibiotics and oral steroids for now
Will also involve pulmonary for further eval-discussed with pulm via [facility] text today
Updated son Ko over the phone today on 12/15
2. Worsening leukocytosis
At this point not sure if related to steroids or related to pneumonia
Broaden antibiotics to IV Zosyn
Trend WBC count
3. Sepsis -POA - Improving
Recovering influenza A pneumonia
Superimposed bacterial pneumonia
-Patient have significant leukocytosis/tachycardia
-Suspecting superimposed bacterial pneumonia with requiring influenza A infection
-Patient already finished 5 days of Tamiflu course at intermediate
-Patient have history of Pseudomonas/MSSA growth on sputum culture in past
-Blood culture 1 set positive for gram-positive cocci in clusters. Seems to be contaminant/CONS
-Stop vancomycin and Zosyn, MRSA screen negative and patient not able to provide sputum
-Was changed to IV Unasyn. Would rather keep on Zosyn given history of Pseudomonas in the past.
-WBC trending up
4. COPD flareup
-Taper dexamethasone to oral steroids prednisone
-No significant wheezing although poor air entry as well on exam
4. Paroxysmal A-fib with RVR - Improved
-Heart rate in range of 100-120 at admit
-Maintain on home dose of metoprolol
-Continue Eliquis
5. Dysphagia
mild cognitive impairment
-Speech therapy evaluated on IDDSI 6 diet
essential hypertension
history of sick sinus syndrome post pacemaker placement
former smoker
history of appendectomy
history of vaginal prolapse repair
right ankle fracture repair
left TKR
history of cholecystectomy
DVT PPX - Eliquis
Full code- [place] records reviewed
Total time spent on today's encounter was 52 minutes which included time spent in counseling the patient/family regarding diagnosis and treatment plan as listed above, goals of care, and symptom management. Case was discussed with nursing staff,
specialists, and care coordinators/case management. All labs and imaging personally reviewed by me. Remainder the time spent in detailed review of previous records, lab data, imaging, and other medical provider documentation.
Anticipated Discharge: > 48 hours
Subjective/Interval History
-
Date of Service: December 15, 2024
Patient feels tired overall and short of breath. Still on oxygen of 4 L. No chest pain. Afebrile
Objective Data
-
Labs:
Laboratory Results
12/15/24
06:39
WBC 17.1 H
Hgb 13.0
Hct 40.6
Plt Count 332
Sodium 135
Potassium 4.5
Chloride 90 L
Carbon Dioxide 40 H
BUN 26 H
Creatinine 0.5 L
Glucose 92
Calcium 8.8
Vital Signs:
Vital Signs
Temp Pulse Resp BP Pulse Ox
97.8 F 75 17 190/94 75
12/15/24 08:01 12/15/24 08:01 12/15/24 08:01 12/15/24 08:01 12/15/24 08:01
I&O
12/14/24 12/15/24 12/16/24
06:59 06:59 06:59
Intake Total 120 / 120 740 / 740
Balance 120 / 120 740 / 740
[2024-12-15 10:32] LABS: NT-proBNP 5530 pg/ml
[2024-12-15] MEDS: APRESOLINE 10 MG IV (11:49)
--- NOTE | 2024-12-15 12:55 | PTCARENOTE ---
Patient weaned down to 2 L NC O2 sating 94%. Patient spot checked with bp check and is 88% on 2 L NC O2. Patient had to be increased back to 4 L NC O2 and is sating at 91%. BP after IV Hydralazine is 143/64. Call orozco within reach.
--- NOTE | 2024-12-15 13:43 | CM ---
Reviewed the chart notes. CM continues to be available to patient/family and is monitoring medical plan for needs at discharge.
Plan: Discharge back to [facility] when medically stable.
Call report to: [phone]
Fax report to: [phone]
Medical necessity and transport forms on chart.
[2024-12-15] MEDS: LASIX 40 MG IV ×2 (13:50→16:53)
[2024-12-15] MEDS: ZOSYN 50 IV ×2 (16:52→21:40)
[2024-12-15] MEDS: FLORASTOR 250 MG PO (17:01)
--- NOTE | 2024-12-15 18:24 | CON.PUL ---
Consultation
Consultation Request
Date/Time Consultation Requested: 12/15/2024
Date/Time Consultation Performed: 12/15/2024
Requesting Provider: Dr. Barbour
Performing Provider: Dr. Cruz Bernal
Reason for Consultation: Acute on chronic hypoxemic and hypercapnic respiratory failure.
Medical History
-
History of Present Illness:
84-year-old woman with past medical history significant for COPD, mild cognitive impairment, essential hypertension, atrial fibrillation, history of sick sinus syndrome with pacemaker in place, former smoker, history of appendectomy, history of
vaginal prolapse and repair, resident [facility]. Sent to the hospital with worsening shortness of breath.
It is noted that last week she was diagnosed with influenza A at the facility and she was treated with 5 days of Tamiflu.
Apparently for the last 2 days prior admission patient was significantly short of breath and hypoxic she was placed on 2 L supplemental oxygen which is new for her. Then she was sent to the emergency room on 12/10/2024 for evaluation.
Patient has some degree of encephalopathy on admission.
Social History
Tobacco: Former Smoker
Alcohol: None
Living: [facility] (Cognitive impairment)
Family History
Family History: Unable to Obtain
Allergies / Home Medications
Allergies
Allergy/AdvReac Type Severity Reaction Status Date / Time
adhesive tape Allergy RASH/BLISTE Verified 04/10/22 17:13
RS
pollen extracts Allergy Coughing, Verified 07/19/22 10:39
sneezing
Home Medications
�Medication �Instructions �Recorded �Confirmed �Last Taken �Type
acetaminophen 325 mg tablet 650 mg PO Q4HPRN PRN mild pain 04/10/22 12/10/24 Unknown History
apixaban 2.5 mg tablet (Eliquis) 2.5 mg PO BID 04/17/22 12/10/24 12/10/24 Rx
Saccharomyces boulardii 250 mg 250 mg PO QPM Gastrointestinal 12/10/24 12/10/24 Unknown History
capsule (Florastor) Issue
amiodarone 200 mg tablet (Pacerone) 200 mg PO DAILY Arrhythmia 12/10/24 12/10/24 12/10/24 History
bisacodyl 10 mg rectal suppository 10 mg DE [id number] PRN if no bm aftr 12/10/24 12/10/24 Unknown History
(Dulcolax (bisacodyl)) mom
ipratropium 0.5 mg-albuterol 3 mg 3 ml inhalation R QID 12/10/24 12/10/24 Unknown History
(2.5 mg base)/3 mL nebulization Lung/Breathing Issues
soln
magnesium hydroxide 400 mg/5 mL 2,400 mg PO HSPRN PRN constipation 12/10/24 12/10/24 Unknown History
oral suspension (Milk of Magnesia)
metoprolol tartrate 25 mg tablet 25 mg PO BID Blood Pressure 12/10/24 12/10/24 12/10/24 History
Review of Systems
-
History Source: Patient
All other systems: Negative unless noted
Vitals / Labs / Diagnostic Testing
Vital Signs
Temp Pulse Resp BP Pulse Ox
98.3 F 71 17 147/69 96
12/15/24 15:55 12/15/24 15:55 12/15/24 15:55 12/15/24 15:55 12/15/24 15:55
Lab Data
12/15/24 06:39
12/15/24 06:39
Microbiology
12/10/24 14:23 Blood/Venous Blood Culture - Final
No Growth - Final Report
12/10/24 14:12 Blood/Venous Blood Culture - Preliminary
Coagulase neg. staphylococcus
Additional testing on request
12/10/24 14:12 Blood/Venous Gram Stain - Preliminary
Diagnostic Testing:
Physical Exam
-
HEENT: Normocephalic
Cardiovascular: S1/S2
Respiratory: Non-Labored Respirations
GI: Soft and Non Distended
Neurology: Awake, Alert and No Motor Deficits
Skin: Warm
General: Comfortable
Assessment
-
84-year-old woman with multiple comorbidities including COPD, cognitive impairment, [facility] resident, recovering from influenza A status post Tamiflu at the facility. Sent to the hospital with worsening shortness of breath, hypoxemia on
12/10/2024.
Patient was found to be on acute hypercapnic and hypoxemic respiratory failure. Required BiPAP therapy. Initially diuresed, treated with antibiotics for possible superimposed pneumonia. Also treated for COPD flareup.
We were consulted on 12/15/2024 due to lack of good response.
-
Acute hypoxemic and hypercapnic respiratory failure
ABG 7.39//86 (12/10/2024)
Bacterial pneumonia suspected-recovered from influenza a few days prior admission
Leukocytosis-improved/afebrile
Acute exacerbation of COPD
Paroxysmal atrial fibrillation with rapid ventricular response-elevated proBNP. Possible heart failure acute on chronic with preserved ejection component.
Echocardiogram 12/11/2024: LVEF 60-60% mild LVH. Normal right ventricular size. Normal right ventricular function. Mild MR. Mild TR. Estimated pulmonary pressure 45 to 50 mmHg. Mild to moderate pulmonary regurgitation.
proBNP 5530 on 12/15/2024(decreased compared to admission that was 9000's)
Conditions present prior admission:
Mild cognitive impairment
Hypertension
History of sick sinus syndrome status post pacemaker
Former smoker
History of appendectomy
History of vaginal prolapse and repair
Right ankle fracture and repair
Left total knee replacement
History of cholecystectomy
Atrial fibrillation on chronic anticoagulation
Assessment and plan:
Despite therapy with Augmentin, steroids and nebulizers as well as diuresis. No significant improvement
Chest x-ray today showed suspicion for volume overload, small bilateral pleural effusion, low lung volumes with a subsegmental atelectasis. Unclear whether this represents pneumonia, patient does have leukocytosis but 8 it is afebrile.
She has been on Unasyn.
-
Possible worsening pneumonia. Difficult to differentiate.
MRSA screening negative-
She has been transition to Zosyn 12/15/2024
Will continue to follow close
Aspiration precautions
Follow cultures
Has not been able to produce sputum.
-
Heart failure with preserved ejection fraction acute on chronic:
Echocardiogram noted, RV function appears to be normal. Preserved ejection fraction.
Continue IV diuretics as you are doing
Heart rate has improved-patient on full oral anticoagulation
Follow electrolytes and renal function closely
-
Acute exacerbation of COPD, suspected:
Continue oxygen supplementation. Usually not [facility] oxygen at the [facility].
Will will optimize nebulizer regimen DuoNebs 4 times a day
Pulmicort twice a day
Incentive spirometer
Acapella device
Continue prednisone as you are doing at 40 mg without taper.
-
For her chronic hypercapnic respiratory failure which appears to be compensated
Currently she appears comfortable, mental status at baseline.
Not on distress
Can consider using BiPAP if there is increased work of breathing.
Avoid sedatives
Will need eventual further evaluation in the outpatient setting.
-
If there is no ongoing improvement then we will obtain CT of the chest to evaluate lung parenchyma in better detail in the next 24 to 48 hours.
-
Patient remains on anticoagulation with Eliquis
-
[2024-12-15] MEDS: PULMICORT 0.5 MG INH (21:29)
[2024-12-15] MEDS: DUONEB 3 ML INH (21:29)
[2024-12-16] MEDS: ZOSYN 50 IV ×4 (04:22→22:25)
[2024-12-16 06:30] VITALS: BMI 23.3
[2024-12-16 07:26] LABS: % Basophils 0.2 % (0-2); % Eosinophils 0.1 % (0-6); % Immature Granulocytes 1.1 % (0-0.5); % Lymphocytes 3.8 % (20.5-51.1); % Monocytes 4.8 % (1.7-9.3); Absolute Immature Granulocytes 0.2 10^3/uL (0-0.05); Absolute Lymphocytes 0.7 10^3/uL (1.2-3.4); Absolute Monocytes 0.9 10^3/uL (0.1-0.6); Absolute Neutrophils 17.4 10^3/uL (1.4-6.5); Hematocrit 44.7 % (37.0-47.0); Mean Corp Hgb Conc. 33.6 g/dL (33.0-37.0); Mean Corpuscular Hgb 32.5 pg (27.0-31.0); Mean Corpuscular Volume 96.8 fL (81.0-99.0); Mean Platelet Volume 9.5 fL (7.4-10.4); Nucleated Red Blood Cells % 0 %; Platelet Count 386 10^3/uL (130-400); Red Blood Cell Count 4.62 10^6/uL (4.20-5.40); Red Cell Dist. Width 13.6 % (11.5-14.5); White Blood Cell Count 19.3 10^3/uL (4.8-10.8)
[2024-12-16 07:37] LABS: Blood Urea Nitrogen 24 mg/dl (7-17); Calcium 8.6 mg/dl (8.4-10.2); Chloride 82 mmol/L (98-107); Estimated Creatinine Clearance 54 ml/min; Glucose 88 mg/dl (70-99); Potassium 3.8 mmol/L (3.5-5.1); Sodium 131 mmol/L (135-145); eGFR > 60.00
[2024-12-16 07:43] VITALS: BP 132/71
[2024-12-16 07:51] LABS: Carbon Dioxide 38 mmol/L (22-30)
[2024-12-16 08:15] VITALS: BMI 23.3
[2024-12-16] MEDS: DELTASONE 40 MG PO (08:38)
[2024-12-16] MEDS: LOPRESSOR 25 MG PO ×2 (08:41→20:40)
--- NOTE | 2024-12-16 08:41 | W.PN.HOSP.TC ---
Today's Communication/Plan
-
IV Lasix. IV Abx. Steroids.
Assessment / Plan
Assessment / Plan
Physical exam:
General: Acutely ill
HEENT: Normocephalic, Atraumatic and Moist Mucous Membranes
Respiratory: Bilateral coarse crackles; Negative Wheezes; Some scattered Rhonchi
Cardiac: Irregular rate and rhythm and S1/S2
GI: Soft, Nontender and Nondistended
Musculoskeletal: Bilateral lower extremity edema. No Clubbing, No Cyanosis
Neuro: Awake, Alert and Oriented, no gross neurological deficits. Generalized weakness
Psych: Calm
A/P:
1. Acute on chronic hypoxic hypercapnic respiratory failure
Multifactorial etiology
Cont IV Lasix but decrease to 40 mg daily
Cont IV Zosyn
Cont oral prednisone
Cont oxygen, currently 4 Lt
Discussed with pulm today on 12/16
Updated son Ko over the phone on 12/15
2. Leukocytosis
At this point not sure if related to steroids or related to pneumonia
On Abx
Cont trend WBC count and temp curve
3. Sepsis -POA - Improving
Recovering influenza A pneumonia
Superimposed bacterial pneumonia
-Patient have significant leukocytosis/tachycardia
-Suspecting superimposed bacterial pneumonia with requiring influenza A infection
-Patient already finished 5 days of Tamiflu course at half-way
-Patient have history of Pseudomonas/MSSA growth on sputum culture in past
-Blood culture 1 set positive for gram-positive cocci in clusters. Seems to be contaminant/CONS
-Stop vancomycin and Zosyn, MRSA screen negative and patient not able to provide sputum
-Was changed to IV Unasyn. Changed back to Zosyn.
4. COPD flareup
-Taper dexamethasone to oral steroids prednisone
-No significant wheezing although poor air entry as well on exam
4. Paroxysmal A-fib with RVR - Improved
-Heart rate in range of 100-120 at admit
-Maintain on home dose of metoprolol
-Continue Eliquis
5. Dysphagia
mild cognitive impairment
-Speech therapy evaluated on IDDSI 6 diet
6. Oral candidiasis
Start nystatin swish and swallow
7. Hypotension
Holding parameters to meds
Watch BP closely
Other medical problems:
essential hypertension
history of sick sinus syndrome post pacemaker placement
former smoker
history of appendectomy
history of vaginal prolapse repair
right ankle fracture repair
left TKR
history of cholecystectomy
DVT PPX - Eliquis
Code status updated and now DNR
Total time spent on today's encounter was 52 minutes which included time spent in counseling the patient/family regarding diagnosis and treatment plan as listed above, goals of care, and symptom management. Case was discussed with nursing staff,
specialists, and care coordinators/case management. All labs and imaging personally reviewed by me. Remainder the time spent in detailed review of previous records, lab data, imaging, and other medical provider documentation.
Anticipated Discharge: > 48 hours
Subjective/Interval History
-
Date of Service: December 16, 2024
Patient remains on oxygen, weak, some dyspnea upon activity. Afebrile
Objective Data
-
Labs:
Laboratory Results
12/16/24
06:39
WBC 19.3 H
Hgb 15.0
Hct 44.7
Plt Count 386
Sodium 131 L
Potassium 3.8
Chloride 82 L
Carbon Dioxide 38 H
BUN 24 H
Creatinine 0.6
Glucose 88
Calcium 8.6
Vital Signs:
Vital Signs
Temp Pulse Resp BP Pulse Ox
97 F 71 17 132/71 94
12/16/24 07:43 12/16/24 07:43 12/16/24 07:43 12/16/24 07:43 12/16/24 07:43
I&O
12/15/24 12/16/24 12/17/24
06:59 06:59 06:59
Intake Total 740 / 740 1000 / 1000
Balance 740 / 740 1000 / 1000
[2024-12-16] MEDS: PACERONE 200 MG PO (08:43)
[2024-12-16] MEDS: ELIQUIS 2.5 MG PO ×2 (08:44→20:35)
[2024-12-16] MEDS: LASIX 40 MG IV (08:46)
[2024-12-16] MEDS: PULMICORT 0.5 MG INH ×2 (08:54→20:53)
[2024-12-16] MEDS: DUONEB 3 ML INH ×3 (08:54→20:53)
--- NOTE | 2024-12-16 11:00 | CM ---
Reviewed the chart notes and spoke with Harley education coordinator at [facility]. Patient is long-term. Additional clinicals sent via [facility] as requested by Harley. CM continues to be available to patient/family and is monitoring medical plan for
needs at discharge.
Plan: Discharge back to [facility] when medically stable.
Call report to: [phone] [address]
Fax report to: [phone]
Medical necessity and transport forms on chart.
[2024-12-16] MEDS: DUONEB INH (12:14)
[2024-12-16] MEDS: MYCOSTATIN ORAL SUSPENSION 5 ML PO ×3 (14:45→22:25)
[2024-12-16 15:09] VITALS: BP 87/48
[2024-12-16 15:12] VITALS: BP 95/44
--- NOTE | 2024-12-16 15:30 | W.PN.UPDATE ---
Update Note
Progress Note Update
Patient and family have expressed desire change of code status to DNR. Discussed with pulm previously and prognosis guarded. Discussed with RN. Code status changed to reflect her whishes.
[2024-12-16] MEDS: FLORASTOR 250 MG PO (17:39)
--- NOTE | 2024-12-16 17:45 | W.PN.PUL3 ---
Today's Communication / Plan
-
Continue antibiotics
Continue nebulizer therapy
Continue prednisone
Diuresis as able
Incentive spirometry
Wean off oxygen
Monitor mental status and work of breathing, BiPAP may be needed.
DNR status noted
Assessment
-
84-year-old woman with multiple comorbidities including COPD, cognitive impairment, [facility] resident, recovering from influenza A status post Tamiflu at the facility. Sent to the hospital with worsening shortness of breath, hypoxemia on
12/10/2024.
Patient was found to be on acute hypercapnic and hypoxemic respiratory failure. Required BiPAP therapy. Initially diuresed, treated with antibiotics for possible superimposed pneumonia. Also treated for COPD flareup.
We were consulted on 12/15/2024 due to lack of good response.
-
Acute hypoxemic and hypercapnic respiratory failure
ABG 7.39/60/86 (12/10/2024)
Bacterial pneumonia suspected-recovered from influenza a few days prior admission
Leukocytosis-improved/afebrile
Acute exacerbation of COPD
Paroxysmal atrial fibrillation with rapid ventricular response-elevated proBNP. Possible heart failure acute on chronic with preserved ejection component.
Echocardiogram 12/11/2024: LVEF 60-60% mild LVH. Normal right ventricular size. Normal right ventricular function. Mild MR. Mild TR. Estimated pulmonary pressure 45 to 50 mmHg. Mild to moderate pulmonary regurgitation.
proBNP 5530 on 12/15/2024(decreased compared to admission that was 9000's)
Conditions present prior admission:
Mild cognitive impairment
Hypertension
History of sick sinus syndrome status post pacemaker
Former smoker
History of appendectomy
History of vaginal prolapse and repair
Right ankle fracture and repair
Left total knee replacement
History of cholecystectomy
Atrial fibrillation on chronic anticoagulation
Assessment and plan:
Despite therapy with Augmentin, steroids and nebulizers as well as diuresis. No significant improvement
Chest x-ray today showed suspicion for volume overload, small bilateral pleural effusion, low lung volumes with a subsegmental atelectasis. Unclear whether this represents pneumonia, patient does have leukocytosis but 8 it is afebrile.
She has been on Unasyn.
-
Possible worsening pneumonia. Difficult to differentiate.
Overall leukocytosis improved, Afebrile
MRSA screening negative-
She has been transition to Zosyn 12/15/2024
Will continue to follow close
Aspiration precautions
All cultures negative so far
Has not been able to produce sputum.
-
Heart failure with preserved ejection fraction acute on chronic:
Echocardiogram noted, RV function appears to be normal. Preserved ejection fraction.
Continue IV diuretics as you are doing
Heart rate has improved-patient on full oral anticoagulation
Follow electrolytes and renal function closely
-
Acute exacerbation of COPD, suspected:
Continue oxygen supplementation currently 4 L. Usually not on oxygen at the [facility].
Continue DuoNebs 4 times a day
Pulmicort twice a day
Incentive spirometer
Acapella device
Continue prednisone as you are doing at 40 mg, will start tapering in the next 24 hours
Will repeat chest x-ray in the next 24 to 48 hours.
-
For her chronic hypercapnic respiratory failure which appears to be compensated
Currently she appears comfortable, mental status at baseline.
Not on distress
Can consider using BiPAP if there is increased work of breathing.
Avoid sedatives
Will need eventual further evaluation in the outpatient setting.
-
If there is no ongoing improvement then we will obtain CT of the chest to evaluate lung parenchyma in better detail in the next 24 to 48 hours. Hold for now.
-
Patient remains on anticoagulation with Eliquis
-
Will follow
Subjective Data
-
Date of Service:
Date of Service: December 16, 2024
Chief Complaint: Pulmonary Follow Up (Acute hypoxemic and hypercapnic respiratory failure.)
Subjective:
No new complaints
Continues to have intermittent coughing
Denies shortness of breath at rest
Review of Systems
Cardiopulmonary: Dyspnea, Dyspnea on Exertion (Improved) and Cough (Improved)
Objective Data
Data Reviewed
Vital Signs / I&O / Oxygen:
Vital Signs
Temp Pulse Resp BP Pulse Ox
97.3 F 72 16 95/44 95
12/16/24 15:09 12/16/24 15:16 12/16/24 15:16 12/16/24 15:12 12/16/24 15:16
Intake and Output
12/15/24 12/16/24 12/17/24
06:59 06:59 06:59
Intake Total 740 / 740 1000 / 1000
Balance 740 / 740 1000 / 1000
SaO2 95
Nasal Cannula flow liters per 4
minute
Physical Exam
General: Comfortable
HEENT: Normocephalic
Cardiovascular: Regular Rhythm
Respiratory: Wheeze (Forceful expiration) and Non-Labored Respirations
GI: Soft and Non Distended
Neurology: Awake, Alert and No Motor Deficits
Labs/Micro/Reports
Lab Data
12/16/24 06:39
12/16/24 06:39
Microbiology
12/10/24 14:23 Blood/Venous Blood Culture - Final
No Growth - Final Report
--- NOTE | 2024-12-16 19:15 | PTCARENOTE ---
made aware of . No new orders at this time. Patient asymptomatic. Call orozco within reach.
[2024-12-16 23:49] VITALS: BP 110/54
[2024-12-17] MEDS: ZOSYN 50 IV ×4 (03:55→22:34)
[2024-12-17 06:00] VITALS: BMI 23.1
[2024-12-17 06:43] LABS: Hematocrit 40.3 % (37.0-47.0); Hemoglobin 13.7 g/dL (12.0-16.0); Mean Corpuscular Hgb 31.9 pg (27.0-31.0); Mean Corpuscular Volume 93.9 fL (81.0-99.0); Mean Platelet Volume 9.7 fL (7.4-10.4); Platelet Count 370 10^3/uL (130-400); Red Blood Cell Count 4.29 10^6/uL (4.20-5.40); Red Cell Dist. Width 13.9 % (11.5-14.5); White Blood Cell Count 23.6 10^3/uL (4.8-10.8)
[2024-12-17 06:55] LABS: Blood Urea Nitrogen 34 mg/dl (7-17); Calcium 8.1 mg/dl (8.4-10.2); Chloride 83 mmol/L (98-107); Estimated Creatinine Clearance 46 ml/min; Glucose 92 mg/dl (70-99); Potassium 3.5 mmol/L (3.5-5.1); Sodium 129 mmol/L (135-145); eGFR > 60.00
[2024-12-17 07:06] LABS: Carbon Dioxide 37 mmol/L (22-30)
[2024-12-17] MEDS: PULMICORT 0.5 MG INH ×2 (07:21→19:44)
[2024-12-17] MEDS: DUONEB 3 ML INH ×4 (07:22→19:44)
[2024-12-17 07:36] LABS: % Basophils 0.1 % (0-2); % Immature Granulocytes 1.3 % (0-0.5); % Lymphocytes 2.9 % (20.5-51.1); % Monocytes 4.3 % (1.7-9.3); % Neutrophils 91.4 % (42.2-75.2); Absolute Immature Granulocytes 0.3 10^3/uL (0-0.05); Absolute Lymphocytes 0.7 10^3/uL (1.2-3.4); Absolute Neutrophils 21.6 10^3/uL (1.4-6.5); Nucleated Red Blood Cells % 0 %
[2024-12-17 07:41] VITALS: BP 125/58
--- NOTE | 2024-12-17 07:57 | PN.CDI ---
CDI
- -
CDI:
Physician Documentation Request
Admit Date: 12/10/24 16:21
Dear Doctor Km,
Please review the following and provide your response in the progress notes.
Clinical Indicators:
Pt admitted with sepsis and pneumonia.
Laboratory Tests
12/16/24 12/17/24
06:39 05:55
Sodium 131 L 129 L
Based on the above, could you clarify in the progress notes, the appropriate diagnosis, if significant, that supports the above abnormalities and additional evaluation, monitoring and/or treatment rendered:
Hyponatremia
Insignificant abnormal lab values
Other
Use of terms such as suspected, likely, concern for, or probable (associated with a specific diagnosis that is being evaluated, monitored, or treated as if it exists) are acceptable and can be coded in the inpatient setting, when documented at the
time of discharge.
Thank you,
Sabi Gramajo RN, BSN
CDI Specialist
[facility]
Please use your independent medical judgment in providing your response.
--- NOTE | 2024-12-17 08:45 | W.PN.HOSP.TC ---
Addendum entered and electronically signed by Glenn Barbour MD 12/17/24 14:55:
Updated son over the phone today again
Original Note:
Today's Communication/Plan
-
IV Lasix. IV antibiotics. Chest x-ray.
Assessment / Plan
Assessment / Plan
Physical exam:
General: Acutely ill
HEENT: Normocephalic, Atraumatic and Moist Mucous Membranes
Respiratory: Bilateral coarse crackles; Negative Wheezes; Some scattered Rhonchi
Cardiac: Irregular rate and rhythm and S1/S2
GI: Soft, Nontender and Nondistended
Musculoskeletal: Bilateral lower extremity edema. No Clubbing, No Cyanosis
Neuro: Awake, Alert and Oriented, no gross neurological deficits. Generalized weakness
Psych: Calm
A/P:
1. Acute on chronic hypoxic hypercapnic respiratory failure
Multifactorial etiology
Cont IV Lasix 40 mg daily
Cont IV Zosyn
Cont oral prednisone
Cont oxygen
Pulmonary on board
Updated son Ko prior
Plan to repeat chest x-ray tomorrow and if persistent abnormal and hypoxemic consideration for CT scan of the chest
2. Leukocytosis
At this point not sure if related to steroids or related to pneumonia.
On Abx
Cont trend WBC count and temp curve
3. Sepsis -POA - Improving
Recovering influenza A pneumonia
Superimposed bacterial pneumonia
-Patient have significant leukocytosis/tachycardia
-Suspecting superimposed bacterial pneumonia with requiring influenza A infection
-Patient already finished 5 days of Tamiflu course at [facility]
-Patient have history of Pseudomonas/MSSA growth on sputum culture in past
-Blood culture 1 set positive for gram-positive cocci in clusters. Seems to be contaminant/CONS
-Stop vancomycin and Zosyn, MRSA screen negative and patient not able to provide sputum
-Was changed to IV Unasyn. Changed back to Zosyn.
4. COPD flareup
-Taper dexamethasone to oral steroids prednisone
-No significant wheezing although poor air entry as well on exam
4. Paroxysmal A-fib with RVR - Improved
-Heart rate in range of 100-120 at admit
-Maintain on home dose of metoprolol
-Continue Eliquis
5. Dysphagia
mild cognitive impairment
-Speech therapy evaluated on IDDSI 6 diet
6. Oral candidiasis
Start nystatin swish and swallow
7. Hypotension
Holding parameters to meds
Watch BP closely
9. Hyponatremia
Start fluid restriction
Monitor sodium closely
Other medical problems:
essential hypertension
history of sick sinus syndrome post pacemaker placement
former smoker
history of appendectomy
history of vaginal prolapse repair
right ankle fracture repair
left TKR
history of cholecystectomy
DVT PPX - Eliquis
Code status updated and now DNR
Total time spent on today's encounter was 52 minutes which included time spent in counseling the patient/family regarding diagnosis and treatment plan as listed above, goals of care, and symptom management. Case was discussed with nursing staff,
specialists, and care coordinators/case management. All labs and imaging personally reviewed by me. Remainder the time spent in detailed review of previous records, lab data, imaging, and other medical provider documentation.
Anticipated Discharge: > 48 hours
Subjective/Interval History
-
Date of Service: December 17, 2024
Patient still requires oxygen. She is tired. Somewhat short of breath.
Objective Data
-
Labs:
Laboratory Results
12/17/24
05:55
WBC 23.6 H
Hgb 13.7
Hct 40.3
Plt Count 370
Sodium 129 L
Potassium 3.5
Chloride 83 L
Carbon Dioxide 37 H
BUN 34 H
Creatinine 0.7
Glucose 92
Calcium 8.1 L
Vital Signs:
Vital Signs
Temp Pulse Resp BP Pulse Ox
97.1 F 71 18 125/58 95
12/17/24 07:41 12/17/24 07:41 12/17/24 07:41 12/17/24 07:41 12/17/24 07:41
I&O
12/16/24 12/17/24 12/18/24
06:59 06:59 06:59
Intake Total 1000 / 1000 340 / 340
Balance 1000 / 1000 340 / 340
[2024-12-17] MEDS: PACERONE 200 MG PO (09:32)
[2024-12-17] MEDS: MYCOSTATIN ORAL SUSPENSION 5 ML PO ×4 (09:32→22:36)
[2024-12-17] MEDS: DELTASONE 40 MG PO (09:32)
[2024-12-17] MEDS: ELIQUIS 2.5 MG PO ×2 (09:32→20:51)
[2024-12-17] MEDS: LASIX 40 MG IV (09:33)
[2024-12-17] MEDS: LOPRESSOR 25 MG PO ×2 (09:33→20:51)
--- NOTE | 2024-12-17 11:10 | W.PN.PUL3 ---
Today's Communication / Plan
-
Decrease prednisone to 30 mg daily
Continue Zosyn
Continue oxygen supplementation currently at 4 L, wean as tolerated.
Continue IV diuretics
Incentive spirometer
Will add Acapella device
Increase mobility as able-patient is essentially bedbound
Repeat chest x-ray tomorrow, if persistently abnormal and patient remains hypoxemic then CT scan
Follow leukocytosis
Assessment
-
84-year-old woman with multiple comorbidities including COPD, cognitive impairment, senior living resident, recovering from influenza A status post Tamiflu at the facility. Sent to the hospital with worsening shortness of breath, hypoxemia on
12/10/2024.
Patient was found to be on acute hypercapnic and hypoxemic respiratory failure. Required BiPAP therapy. Initially diuresed, treated with antibiotics for possible superimposed pneumonia. Also treated for COPD flareup.
We were consulted on 12/15/2024 due to lack of good response.
-
Acute hypoxemic and hypercapnic respiratory failure
ABG 7.39/60/86 (12/10/2024)
Bacterial pneumonia suspected-recovered from influenza a few days prior admission
Leukocytosis-improved/afebrile
Acute exacerbation of COPD
Paroxysmal atrial fibrillation with rapid ventricular response-elevated proBNP. Possible heart failure acute on chronic with preserved ejection component.
Echocardiogram 12/11/2024: LVEF 60-60% mild LVH. Normal right ventricular size. Normal right ventricular function. Mild MR. Mild TR. Estimated pulmonary pressure 45 to 50 mmHg. Mild to moderate pulmonary regurgitation.
proBNP 5530 on 12/15/2024(decreased compared to admission that was 9000's)
Conditions present prior admission:
Mild cognitive impairment
Hypertension
History of sick sinus syndrome status post pacemaker
Former smoker
History of appendectomy
History of vaginal prolapse and repair
Right ankle fracture and repair
Left total knee replacement
History of cholecystectomy
Atrial fibrillation on chronic anticoagulation
Assessment and plan:
Despite therapy with Augmentin, steroids and nebulizers as well as diuresis. No significant improvement
Chest x-ray 12/15/2024-showed suspicion for volume overload, small bilateral pleural effusion, low lung volumes with a subsegmental atelectasis. Unclear whether this represents pneumonia, patient does have leukocytosis and afebrile.
She has been on Unasyn.
On exam patient does not appear in distress. Does not complain much.
Reports a wet cough and difficulty expectorating, crackles on exam -does not appear toxic 12/17/2024.
-
Possible worsening pneumonia. Difficult to differentiate.
Recently had influenza 12/10/2024.
Persistent leukocytosis, Afebrile-part of the leukocytosis likely due to prednisone.
MRSA screening negative
Has not been able to produce sputum.
She has been transition to Zosyn 12/15/2024
Will continue to follow close
Aspiration precautions
All cultures negative so far
-
Heart failure with preserved ejection fraction acute on chronic:
Echocardiogram noted, RV function appears to be normal. Preserved ejection fraction.
Continue IV diuretics as you are doing
Weight trending lower
Heart rate has improved-patient on full oral anticoagulation
Follow electrolytes and renal function closely
-
Acute exacerbation of COPD, suspected:
Continue oxygen supplementation currently 4 L. Usually not on oxygen at the senior living. Wean as able. Not worsening.
Continue DuoNebs 4 times a day-should be discharged on this medication
Pulmicort twice a day-should be discharged on this medication
Incentive spirometer
Acapella device ordered and encouraged. Patient has cough with difficulty expectorating. Crackles on exam.
Continue prednisone as you are doing at 40 mg, decreased to 30 mg today 12/17/2024. Not significantly bronchospastic to my exam.
Repeat chest x-ray tomorrow 12/18/2024.
-
For her chronic hypercapnic respiratory failure which appears to be compensated
Currently she appears comfortable, mental status at baseline.
Not on distress
Can consider using BiPAP if there is increased work of breathing.
Avoid sedatives
Will need eventual further evaluation in the outpatient setting.
-
If there is no ongoing improvement then we will obtain CT of the chest to evaluate lung parenchyma in better detail in the next 24 to 48 hours. Repeat chest x-ray tomorrow. 12/17/2024
-
Patient remains on anticoagulation with Eliquis
-
Will follow
Subjective Data
-
Date of Service:
Date of Service: December 17, 2024
Chief Complaint: Pulmonary Follow Up (Acute hypoxemic and hypercapnic respiratory failure.)
Subjective:
Patient offers no new complaints
Denies headache
Denies significant phlegm production
Review of Systems
Cardiopulmonary: Dyspnea (none at rest), Sputum Production (n) and Wheezing (n)
GI: Abdominal Pain (n) and Nausea (n)
Objective Data
Data Reviewed
Vital Signs / I&O / Oxygen:
Vital Signs
Temp Pulse Resp BP Pulse Ox
97.1 F 71 18 125/58 95
12/17/24 07:41 12/17/24 07:41 12/17/24 07:41 12/17/24 09:33 12/17/24 07:41
Intake and Output
12/16/24 12/17/24 12/18/24
06:59 06:59 06:59
Intake Total 1000 / 1000 340 / 340
Balance 1000 / 1000 340 / 340
SaO2 95
Nasal Cannula flow liters per 4
minute
Physical Exam
General: Comfortable
HEENT: Normocephalic
Cardiovascular: Regular Rhythm
Respiratory: Wheeze (n), Crackles, Rhonchi and Non-Labored Respirations (At rest)
GI: Soft and Non Distended
Neurology: Awake, Alert and No Motor Deficits
Labs/Micro/Reports
Lab Data
12/17/24 05:55
12/17/24 05:55
Microbiology
12/10/24 14:23 Blood/Venous Blood Culture - Final
No Growth - Final Report
[2024-12-17 12:04] VITALS: BMI 23.1
--- NOTE | 2024-12-17 14:37 | CM ---
Reviewed the chart notes. Patient continues with supplemental O2 @ 4L/min. CM continues to be available to patient/family and is monitoring medical plan for needs at discharge.
Plan: Discharge back to [facility] when medically stable.
Call report to: [phone] [address]
Fax report to: [phone]
Medical necessity and transport forms on chart.
[2024-12-17] MEDS: FLORASTOR 250 MG PO (17:35)
[2024-12-17 23:40] VITALS: BP 104/46
[2024-12-18] MEDS: ZOSYN 50 IV ×4 (03:11→21:33)
[2024-12-18 06:00] VITALS: BMI 23.1
[2024-12-18 07:20] VITALS: BP 120/51
[2024-12-18] MEDS: PULMICORT 0.5 MG INH ×2 (07:30→20:59)
[2024-12-18] MEDS: DUONEB 3 ML INH ×4 (07:30→20:59)
[2024-12-18 07:50] LABS: % Basophils 0.2 % (0-2); % Eosinophils 0.1 % (0-6); % Immature Granulocytes 1.2 % (0-0.5); % Lymphocytes 3.3 % (20.5-51.1); % Monocytes 4.9 % (1.7-9.3); % Neutrophils 90.3 % (42.2-75.2); Absolute Immature Granulocytes 0.2 10^3/uL (0-0.05); Absolute Lymphocytes 0.6 10^3/uL (1.2-3.4); Absolute Monocytes 0.9 10^3/uL (0.1-0.6); Absolute Neutrophils 16.5 10^3/uL (1.4-6.5); Mean Corp Hgb Conc. 35.1 g/dL (33.0-37.0); Mean Corpuscular Hgb 32.6 pg (27.0-31.0); Mean Corpuscular Volume 92.7 fL (81.0-99.0); Mean Platelet Volume 9.9 fL (7.4-10.4); Nucleated Red Blood Cells % 0 %; Platelet Count 345 10^3/uL (130-400); Red Blood Cell Count 3.99 10^6/uL (4.20-5.40); Red Cell Dist. Width 13.8 % (11.5-14.5); White Blood Cell Count 18.3 10^3/uL (4.8-10.8)
[2024-12-18] MEDS: LOPRESSOR 25 MG PO ×2 (08:05→20:22)
[2024-12-18] MEDS: ELIQUIS 2.5 MG PO ×2 (08:05→20:23)
[2024-12-18] MEDS: MYCOSTATIN ORAL SUSPENSION 5 ML PO ×3 (08:05→21:33)
[2024-12-18] MEDS: PACERONE 200 MG PO (08:05)
[2024-12-18] MEDS: LASIX 40 MG IV (08:06)
[2024-12-18] MEDS: DELTASONE 30 MG PO (08:06)
--- NOTE | 2024-12-18 09:17 | W.PN.HOSP.TC ---
Today's Communication/Plan
-
Diuretics. Antibiotics. Steroids
Assessment / Plan
Assessment / Plan
Physical exam:
General: Acutely ill
HEENT: Normocephalic, Atraumatic and Moist Mucous Membranes
Respiratory: Bilateral coarse crackles; Negative Wheezes; Some scattered Rhonchi
Cardiac: Irregular rate and rhythm and S1/S2
GI: Soft, Nontender and Nondistended
Musculoskeletal: Bilateral lower extremity edema. No Clubbing, No Cyanosis
Neuro: Awake, Alert and Oriented, no gross neurological deficits. Generalized weakness
Psych: Calm
A/P:
1. Acute on chronic hypoxic hypercapnic respiratory failure
Multifactorial etiology
Cont IV Lasix 40 mg daily
Cont IV Zosyn
Cont oral prednisone
Cont oxygen
Pulmonary on board
Updated son Ko prior
Plan to repeat chest x-ray today and if persistent abnormal and hypoxemic consideration for CT scan of the chest--> discussed with pulmonary today on 12/[address]
2. Leukocytosis
At this point not sure if related to steroids or related to pneumonia but seems to be the former.
On Abx
Cont trend WBC count and temp curve
3. Sepsis -POA - Improving
Recovering influenza A pneumonia
Superimposed bacterial pneumonia
-Patient have significant leukocytosis/tachycardia
-Suspecting superimposed bacterial pneumonia with requiring influenza A infection
-[facility]
-Patient have history of Pseudomonas/MSSA growth on sputum culture in past
-Blood culture 1 set positive for gram-positive cocci in clusters. Seems to be contaminant/CONS
-Stop vancomycin and Zosyn, MRSA screen negative and patient not able to provide sputum
-Was changed to IV Unasyn. Changed back to Zosyn.
4. COPD flareup
-Taper dexamethasone to oral steroids prednisone
-No significant wheezing although poor air entry as well on exam
4. Paroxysmal A-fib with RVR - Improved
-Heart rate in range of 100-120 at admit
-Maintain on home dose of metoprolol
-Continue Eliquis
5. Dysphagia
mild cognitive impairment
-Speech therapy evaluated on IDDSI 6 diet
6. Oral candidiasis
Start nystatin swish and swallow
7. Hypotension
Holding parameters to meds
Watch BP closely
9. Hyponatremia
Start fluid restriction
Monitor sodium closely
Other medical problems:
essential hypertension
history of sick sinus syndrome post pacemaker placement
former smoker
history of appendectomy
history of vaginal prolapse repair
right ankle fracture repair
left TKR
history of cholecystectomy
DVT PPX - Eliquis
Code status updated and now DNR
Total time spent on today's encounter was 52 minutes which included time spent in counseling the patient/family regarding diagnosis and treatment plan as listed above, goals of care, and symptom management. Case was discussed with nursing staff,
specialists, and care coordinators/case management. All labs and imaging personally reviewed by me. Remainder the time spent in detailed review of previous records, lab data, imaging, and other medical provider documentation.
Anticipated Discharge: 24 - 48 hours
Subjective/Interval History
-
Date of Service: December 18, 2024
Patient still feels short of breath but overall better. Still on supplemental oxygen. Afebrile
Objective Data
-
Labs:
Laboratory Results
12/18/24 12/18/24
07:05 08:45
WBC 18.3 H
Hgb 13.0
Hct 37.0
Plt Count 345
Sodium Cancelled Pending
Potassium Cancelled Pending
Chloride Cancelled Pending
Carbon Dioxide Cancelled Pending
BUN Cancelled Pending
Creatinine Cancelled Pending
Glucose Cancelled Pending
Calcium Cancelled Pending
Vital Signs:
Vital Signs
Temp Pulse Resp BP Pulse Ox
97.9 F 71 16 120/51 93
12/18/24 07:20 12/18/24 08:05 12/18/24 07:30 12/18/24 08:06 12/18/24 07:30
I&O
12/17/24 12/18/24 12/19/24
06:59 06:59 06:59
Intake Total 340 / 340 1869
Balance 340 / 340 1869
[2024-12-18 09:52] LABS: Blood Urea Nitrogen 40 mg/dl (7-17); Calcium 7.8 mg/dl (8.4-10.2); Chloride 83 mmol/L (98-107); Estimated Creatinine Clearance 41 ml/min; Glucose 96 mg/dl (70-99); Sodium 132 mmol/L (135-145); eGFR > 60.00
[2024-12-18 10:06] LABS: Carbon Dioxide 40 mmol/L (22-30)
[2024-12-18 11:34] VITALS: BP 105/57; PULSE 70; O2SAT 92
--- NOTE | 2024-12-18 12:21 | W.PN.PUL3 ---
Today's Communication / Plan
-
Consider discontinuation of antibiotics in the next 24 hours
Continue IV diuretics, may need to transition to oral in the next 24 hours. Follow BUN
Continue Pulmicort/DuoNeb-should be discharged on these medications
Prednisone taper currently at 30 mg. Slow taper going forward.
Encourage incentive spirometry-patient not able to do has cognitive impairment
Encourage Acapella device
Patient essentially not moving much and bedbound, contributing to hypoxemia as well.
Hopefully can discharge in the next 48 hours
Will follow
Assessment
-
84-year-old woman with multiple comorbidities including COPD, cognitive impairment, [facility] resident, recovering from influenza A status post Tamiflu at the facility. Sent to the hospital with worsening shortness of breath, hypoxemia on
12/10/2024.
Patient was found to be on acute hypercapnic and hypoxemic respiratory failure. Required BiPAP therapy. Initially diuresed, treated with antibiotics for possible superimposed pneumonia. Also treated for COPD flareup.
We were consulted on 12/15/2024 due to lack of good response.
-
Acute hypoxemic and hypercapnic respiratory failure
ABG 7.39/60/86 (12/10/2024)
Bacterial pneumonia suspected-recovered from influenza a few days prior admission
Leukocytosis-improved/afebrile
Acute exacerbation of COPD
Paroxysmal atrial fibrillation with rapid ventricular response-elevated proBNP. Possible heart failure acute on chronic with preserved ejection component.
Echocardiogram 12/11/2024: LVEF 60-60% mild LVH. Normal right ventricular size. Normal right ventricular function. Mild MR. Mild TR. Estimated pulmonary pressure 45 to 50 mmHg. Mild to moderate pulmonary regurgitation.
proBNP 5530 on 12/15/2024(decreased compared to admission that was 9000's)
Conditions present prior admission:
Mild cognitive impairment
Hypertension
History of sick sinus syndrome status post pacemaker
Former smoker
History of appendectomy
History of vaginal prolapse and repair
Right ankle fracture and repair
Left total knee replacement
History of cholecystectomy
Atrial fibrillation on chronic anticoagulation
Assessment and plan:
Despite therapy with Augmentin, steroids and nebulizers as well as diuresis. No significant improvement
Chest x-ray 12/15/2024-showed suspicion for volume overload, small bilateral pleural effusion, low lung volumes with a subsegmental atelectasis. Unclear whether this represents pneumonia, patient does have leukocytosis and afebrile.
She has been on Unasyn.
On exam patient does not appear in distress. Does not complain much.
Reports a wet cough and difficulty expectorating, crackles on exam -does not appear toxic 12/18/2024.
-
Possible worsening pneumonia. Difficult to differentiate.
Recently had influenza 12/10/2024.
Persistent leukocytosis, improved 12/18/2024, Afebrile-part of the leukocytosis likely due to prednisone.
MRSA screening negative
Has not been able to produce sputum.
She has been transition to Zosyn 12/15/2024-patient has received at least 5 to 6 days of antibiotics. Consider discontinuation and observe in the next 24 hours.
Will continue to follow close
Aspiration precautions
All cultures negative so far
-
Heart failure with preserved ejection fraction acute on chronic:
Echocardiogram noted, RV function appears to be normal. Preserved ejection fraction.
Continue IV diuretics as you are doing, 40 mg IV daily. Creatinine is Normal the BUN increasing. May need to transition to oral in the next day or so.
Weight trending lower
Heart rate has improved-patient on full oral anticoagulation
Follow electrolytes and renal function closely
-
Acute exacerbation of COPD, suspected:
Continue oxygen supplementation currently 3.5 L. Usually not on oxygen at the [facility]. Wean as able. Not worsening.
Continue DuoNebs 4 times a day-should be discharged on this medication
Pulmicort twice a day-should be discharged on this medication
She is unlikely to perform inhaler maneuver. Cognitive impairment.
Incentive spirometer
Acapella device ordered and encouraged. Patient has cough with difficulty expectorating. Crackles on exam.
Continue prednisone-decreased to 30 mg 12/17/2024. Not significantly bronchospastic to my exam.
Chest x-ray 12/18/2024: Reviewed by me and showed mild improvement compared to prior. Suspect will take some time to clear pneumonia. Pulmonary edema pattern to my view slightly improved.
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
Patient likely will need oxygen at discharge
-
For her chronic hypercapnic respiratory failure which appears to be compensated
Currently she appears comfortable, mental status at baseline.
Not on distress
Can consider using BiPAP if there is increased work of breathing. Hold for now.
Avoid sedatives
Will need eventual further evaluation in the outpatient setting.
-
Patient remains on anticoagulation with Eliquis
-
Will follow
-Patient will be discharged back to her [facility].
Subjective Data
-
Date of Service:
Date of Service: December 18, 2024
Chief Complaint: Pulmonary Follow Up (Acute hypoxemic and hypercapnic respiratory failure.)
Subjective:
Patient offers no new complaints
Continues to have coughing intermittently
Continues to require oxygen supplementation
Patient has not been very talkative through the course of her hospital stay.
Review of Systems
Cardiopulmonary: Dyspnea (Improved since admission)
Objective Data
Data Reviewed
Vital Signs / I&O / Oxygen:
Vital Signs
Temp Pulse Resp BP Pulse Ox
97.9 F 69 16 120/51 94
12/18/24 07:20 12/18/24 12:13 12/18/24 12:13 12/18/24 08:06 12/18/24 12:13
Intake and Output
12/17/24 12/18/24 12/19/24
06:59 06:59 06:59
Intake Total 340 / 340 1869
Balance 340 / 340 1869 / 1869
SaO2 94
Nasal Cannula flow liters per 3.5
minute
Physical Exam
General: Comfortable
HEENT: Normocephalic
Cardiovascular: Regular Rhythm
Respiratory: Wheeze (n), Crackles, Rhonchi and Non-Labored Respirations (At rest)
GI: Soft and Non Distended
Neurology: Awake, Alert and No Motor Deficits
Skin: Warm
Labs/Micro/Reports
Lab Data
12/18/24 07:05
12/18/24 09:19
Microbiology
12/10/24 14:12 Blood/Venous Blood Culture - Final
Coagulase neg. staphylococcus
Additional testing on request
12/10/24 14:12 Blood/Venous Gram Stain - Final
12/10/24 14:23 Blood/Venous Blood Culture - Final
No Growth - Final Report
--- NOTE | 2024-12-18 13:13 | CM ---
Reviewed the chart notes. Patient continues on supplement O2 @ 3.5L/min.
Plan: Discharge back to [facility] when medically stable.
Call report to: [phone] [address]
Fax report to: [phone]
Medical necessity and transport forms on chart.
[2024-12-18] MEDS: MYCOSTATIN ORAL SUSPENSION PO (14:20)
[2024-12-18 15:05] VITALS: BP 109/51
[2024-12-18] MEDS: FLORASTOR 250 MG PO (17:38)
--- NOTE | 2024-12-18 18:16 | PTCARENOTE ---
pt 2 assist to chair this afternoon. pt heavily incontinent of stool and urine with this nurse as PT tried to work with her. pt received hot soap and water bed bath with this nurse. calazine cream applied to sacrum and buttocks. pt is still
supervised feed at this time. pt remains on O2 within the room as well. poor appetite overall but over last two shifts there has been an improvement in oral intake.
[2024-12-18] MEDS: FLUSH (NSS) 2 FLUSH IV (21:34)
[2024-12-18 23:38] VITALS: BP 112/60
[2024-12-19] MEDS: ZOSYN 50 IV ×2 (03:19→10:54)
[2024-12-19] MEDS: FLUSH (NSS) 2 FLUSH IV (03:20)
[2024-12-19 06:00] VITALS: BMI 23.0
[2024-12-19 07:05] VITALS: BP 114/51
[2024-12-19] MEDS: PULMICORT 0.5 MG INH ×2 (07:49→18:10)
[2024-12-19] MEDS: DUONEB 3 ML INH ×4 (07:49→18:10)
[2024-12-19 07:51] LABS: % Basophils 0.1 % (0-2); % Eosinophils 0.1 % (0-6); % Immature Granulocytes 1.3 % (0-0.5); % Lymphocytes 4.9 % (20.5-51.1); % Monocytes 5.8 % (1.7-9.3); % Neutrophils 87.8 % (42.2-75.2); Absolute Immature Granulocytes 0.2 10^3/uL (0-0.05); Absolute Lymphocytes 0.8 10^3/uL (1.2-3.4); Absolute Monocytes 0.9 10^3/uL (0.1-0.6); Absolute Neutrophils 13.5 10^3/uL (1.4-6.5); Hematocrit 37.7 % (37.0-47.0); Hemoglobin 12.7 g/dL (12.0-16.0); Mean Corp Hgb Conc. 33.7 g/dL (33.0-37.0); Mean Corpuscular Hgb 32.2 pg (27.0-31.0); Mean Corpuscular Volume 95.7 fL (81.0-99.0); Mean Platelet Volume 9.8 fL (7.4-10.4); Nucleated Red Blood Cells % 0 %; Platelet Count 356 10^3/uL (130-400); Red Blood Cell Count 3.94 10^6/uL (4.20-5.40); Red Cell Dist. Width 13.9 % (11.5-14.5); White Blood Cell Count 15.4 10^3/uL (4.8-10.8)
[2024-12-19] MEDS: PACERONE 200 MG PO (08:20)
[2024-12-19] MEDS: MYCOSTATIN ORAL SUSPENSION 5 ML PO ×4 (08:20→22:09)
[2024-12-19] MEDS: DELTASONE 30 MG PO (08:20)
[2024-12-19] MEDS: ELIQUIS 2.5 MG PO ×2 (08:20→19:28)
[2024-12-19] MEDS: LASIX 40 MG IV (08:21)
[2024-12-19] MEDS: LOPRESSOR 25 MG PO ×2 (08:21→19:29)
[2024-12-19 08:26] LABS: Blood Urea Nitrogen 37 mg/dl (7-17); Calcium 8.2 mg/dl (8.4-10.2); Chloride 85 mmol/L (98-107); Estimated Creatinine Clearance 41 ml/min; Glucose 95 mg/dl (70-99); Potassium 3.2 mmol/L (3.5-5.1); Sodium 131 mmol/L (135-145); eGFR > 60.00
--- NOTE | 2024-12-19 08:29 | W.PN.HOSP.TC ---
Today's Communication/Plan
-
Tapering course of oral steroids. Oxygen
Assessment / Plan
Assessment / Plan
Physical exam:
General: Acutely ill
HEENT: Normocephalic, Atraumatic and Moist Mucous Membranes
Respiratory: Bilateral coarse crackles; Negative Wheezes; Some scattered Rhonchi
Cardiac: Irregular rate and rhythm and S1/S2
GI: Soft, Nontender and Nondistended
Musculoskeletal: Bilateral lower extremity edema. No Clubbing, No Cyanosis
Neuro: Awake, Alert and Oriented, no gross neurological deficits. Generalized weakness
Psych: Calm
A/P:
1. Acute on chronic hypoxic hypercapnic respiratory failure
Multifactorial etiology
Cont IV Lasix 40 mg daily-will switch to oral
Stop IV antibiotics today
Cont oral prednisone tapering
Cont oxygen
Pulmonary on board-discussed with pulmonary yesterday and no need for CT at that time
Updated son Ko prior
2. Leukocytosis
Trending down
3. Sepsis -POA - Improved. Contaminant/CONS
Recovering influenza A pneumonia
Superimposed bacterial pneumonia
-Complete course of antibiotics today
4. COPD flareup
-Taper dexamethasone to oral steroids prednisone
-No significant wheezing although poor air entry as well on exam
4. Paroxysmal A-fib with RVR - Improved
-Heart rate in range of 100-120 at admit
-Maintain on home dose of metoprolol
-Continue Eliquis
5. Dysphagia
mild cognitive impairment
-Speech therapy evaluated on IDDSI 6 diet
6. Oral candidiasis
Continue nystatin swish and swallow
7. Hypotension
Improved
Holding parameters to meds
9. Hyponatremia
Continue fluid restriction
Monitor sodium closely
Other medical problems:
essential hypertension
history of sick sinus syndrome post pacemaker placement
former smoker
history of appendectomy
history of vaginal prolapse repair
right ankle fracture repair
left TKR
history of cholecystectomy
DVT PPX - Eliquis
Code status: DNR
Anticipated Discharge: > 48 hours
Subjective/Interval History
-
Date of Service: December 19, 2024
Patient tired and frail overall. On supplemental oxygen
Objective Data
-
Labs:
Laboratory Results
12/19/24
06:25
WBC 15.4 H
Hgb 12.7
Hct 37.7
Plt Count 356
Sodium 131 L
Potassium 3.2 L
Chloride 85 L
Carbon Dioxide Pending
BUN 37 H
Creatinine 0.8
Glucose 95
Calcium 8.2 L
Vital Signs:
Vital Signs
Temp Pulse Resp BP Pulse Ox
97.9 F 71 18 114/51 95
12/18/24 23:38 12/19/24 08:21 12/19/24 07:51 12/19/24 08:21 12/19/24 07:51
I&O
12/18/24 12/19/24 12/20/24
06:59 06:59 06:59
Intake Total 1869 990 / 990
Balance 1869 990 / 990
[2024-12-19 08:37] LABS: Carbon Dioxide 38 mmol/L (22-30)
--- NOTE | 2024-12-19 15:41 | W.PN.PUL3 ---
Today's Communication / Plan
-
Remains off antibiotics
Continue nebulized therapy
Avoid sedation
Try to encourage airway clearance, cough
Will likely require oxygen at residential
Disposition efforts
We will sign off. Please call with questions
Assessment
-
84-year-old woman with multiple comorbidities including COPD, cognitive impairment, residential resident, recovering from influenza A status post Tamiflu at the facility. Sent to the hospital with worsening shortness of breath, hypoxemia on
12/10/2024.
Patient was found to be on acute hypercapnic and hypoxemic respiratory failure. Required BiPAP therapy. Initially diuresed, treated with antibiotics for possible superimposed pneumonia. Also treated for COPD flareup.
We were consulted on 12/15/2024 due to lack of good response.
-
Acute hypoxemic and hypercapnic respiratory failure
ABG 7.39/60/86 (12/10/2024)
Bacterial pneumonia suspected-recovered from influenza a few days prior admission
Leukocytosis-improved/afebrile
Acute exacerbation of COPD
Paroxysmal atrial fibrillation with rapid ventricular response-elevated proBNP. Possible heart failure acute on chronic with preserved ejection component.
Echocardiogram 12/11/2024: LVEF 60-60% mild LVH. Normal right ventricular size. Normal right ventricular function. Mild MR. Mild TR. Estimated pulmonary pressure 45 to 50 mmHg. Mild to moderate pulmonary regurgitation.
proBNP 5530 on 12/15/2024(decreased compared to admission that was 9000's)
Conditions present prior admission:
Mild cognitive impairment
Hypertension
History of sick sinus syndrome status post pacemaker
Former smoker
History of appendectomy
History of vaginal prolapse and repair
Right ankle fracture and repair
Left total knee replacement
History of cholecystectomy
Atrial fibrillation on chronic anticoagulation
Assessment and plan:
Despite therapy with Augmentin, steroids and nebulizers as well as diuresis. No significant improvement
Chest x-ray 12/15/2024-showed suspicion for volume overload, small bilateral pleural effusion, low lung volumes with a subsegmental atelectasis. Unclear whether this represents pneumonia, patient does have leukocytosis and afebrile.
She has been on Unasyn.
On exam patient does not appear in distress. Does not complain much.
Reports a wet cough and difficulty expectorating, crackles on exam -does not appear toxic 12/18/2024.
-
Possible worsening pneumonia. Difficult to differentiate.
Recently had influenza 12/10/2024.
MRSA screening negative
Has not been able to produce sputum.
She has been transition to Zosyn 12/15/2024-patient has received at least 5 to 6 days of antibiotics. Now off antibiotics
Aspiration precautions
All cultures negative so far
-
Heart failure with preserved ejection fraction acute on chronic:
Echocardiogram noted, RV function appears to be normal. Preserved ejection fraction.
Continue IV diuretics as you are doing, 40 mg IV daily. Creatinine is Normal the BUN increasing. May need to transition to oral in the next day or so.
Weight trending lower
Heart rate has improved-patient on full oral anticoagulation
Follow electrolytes and renal function closely
-
Acute exacerbation of COPD, suspected:
Continue oxygen supplementation currently 3.5 L. Usually not on oxygen at the residential. Wean as able. Not worsening.
Continue DuoNebs 4 times a day-should be discharged on this medication
Pulmicort twice a day-should be discharged on this medication
She is unlikely to perform inhaler maneuver. Cognitive impairment.
Incentive spirometer
Acapella device ordered and encouraged. However, patient has extremely weak cough. Doubt this will be helpful
Continue prednisone-decreased to 30 mg 12/17/2024. Not significantly bronchospastic to my exam.
Chest x-ray 12/18/2024: Reviewed by me and showed mild improvement compared to prior. Suspect will take some time to clear pneumonia. Pulmonary edema pattern to my view slightly improved.
Hold off on CT chest unlikely to exchange specialist.
Patient likely will need oxygen at discharge
-
For her chronic hypercapnic respiratory failure which appears to be compensated
Currently she appears comfortable, mental status at baseline.
Not on distress
Can consider using BiPAP if there is increased work of breathing. Hold for now.
Avoid sedatives
Will need eventual further evaluation in the outpatient setting.
-
Patient remains on anticoagulation with Eliquis
-
We will sign off. Please call with questions
Subjective Data
-
Date of Service:
Date of Service: December 19, 2024
Chief Complaint: Pulmonary Follow Up (Acute hypoxemic and hypercapnic respiratory failure.)
Subjective:
Patient examined earlier this morning. Late entry. Patient appears to be comfortable. She denies shortness of breath, chest pain, nausea. She is profoundly deconditioned, has very weak cough
Objective Data
Data Reviewed
Vital Signs / I&O / Oxygen:
Vital Signs
Temp Pulse Resp BP Pulse Ox
98.3 F 72 18 114/51 93
12/19/24 07:05 12/19/24 11:21 12/19/24 15:15 12/19/24 08:21 12/19/24 15:15
Intake and Output
12/18/24 12/19/24 12/20/24
06:59 06:59 06:59
Intake Total 1869 990 / 990
Balance 1869 990 / 990
SaO2 93
Nasal Cannula flow liters per 2
minute
Physical Exam
General: Comfortable
HEENT: Normocephalic
Cardiovascular: Regular Rhythm
Respiratory: Wheeze (n), Crackles (n), Rhonchi (n), Non-Labored Respirations (At rest) and Other (Poor inspiratory effort)
GI: Soft and Non Distended
Neurology: Awake, Alert and No Motor Deficits (Profoundly weak)
Skin: Warm, Good Color (n) and Cyanosis (n)
Labs/Micro/Reports
Lab Data
12/19/24 06:25
12/19/24 06:25
Microbiology
12/10/24 14:12 Blood/Venous Blood Culture - Final
Coagulase neg. staphylococcus
Additional testing on request
12/10/24 14:12 Blood/Venous Gram Stain - Final
[2024-12-19 15:43] VITALS: BP 102/57
[2024-12-19] MEDS: FLORASTOR 250 MG PO (17:12)
[2024-12-19 19:27] VITALS: BP 110/67
[2024-12-19 23:53] VITALS: BP 123/62
[2024-12-20 06:00] VITALS: BMI 22.8
[2024-12-20 07:09] LABS: % Basophils 0.1 % (0-2); % Eosinophils 0.2 % (0-6); % Lymphocytes 6.2 % (20.5-51.1); % Neutrophils 86.5 % (42.2-75.2); Absolute Immature Granulocytes 0.2 10^3/uL (0-0.05); Absolute Lymphocytes 0.9 10^3/uL (1.2-3.4); Absolute Monocytes 0.9 10^3/uL (0.1-0.6); Absolute Neutrophils 13.1 10^3/uL (1.4-6.5); Hematocrit 40.4 % (37.0-47.0); Hemoglobin 13.5 g/dL (12.0-16.0); Mean Corp Hgb Conc. 33.4 g/dL (33.0-37.0); Mean Corpuscular Hgb 31.9 pg (27.0-31.0); Mean Corpuscular Volume 95.5 fL (81.0-99.0); Mean Platelet Volume 9.7 fL (7.4-10.4); Nucleated Red Blood Cells % 0 %; Platelet Count 413 10^3/uL (130-400); Red Blood Cell Count 4.23 10^6/uL (4.20-5.40); Red Cell Dist. Width 13.8 % (11.5-14.5); White Blood Cell Count 15.2 10^3/uL (4.8-10.8)
[2024-12-20] MEDS: DUONEB 3 ML INH ×3 (07:31→20:42)
[2024-12-20] MEDS: PULMICORT 0.5 MG INH ×2 (07:31→20:42)
[2024-12-20 07:39] LABS: Blood Urea Nitrogen 40 mg/dl (7-17); Calcium 8.7 mg/dl (8.4-10.2); Chloride 84 mmol/L (98-107); Estimated Creatinine Clearance 54 ml/min; Glucose 104 mg/dl (70-99); Potassium 3.5 mmol/L (3.5-5.1); Sodium 132 mmol/L (135-145); eGFR > 60.00
[2024-12-20 07:51] LABS: Carbon Dioxide 38 mmol/L (22-30)
[2024-12-20 07:52] VITALS: BP 128/73
[2024-12-20] MEDS: DELTASONE 30 MG PO (08:37)
[2024-12-20] MEDS: ELIQUIS 2.5 MG PO ×2 (08:37→21:13)
[2024-12-20] MEDS: MYCOSTATIN ORAL SUSPENSION 5 ML PO ×4 (08:37→21:46)
[2024-12-20] MEDS: LOPRESSOR 25 MG PO ×2 (08:38→21:13)
[2024-12-20] MEDS: PACERONE 200 MG PO (08:38)
[2024-12-20] MEDS: LASIX 40 MG PO (08:38)
--- NOTE | 2024-12-20 09:28 | W.PN.HOSP.TC ---
Today's Communication/Plan
-
Discharge planning
Assessment / Plan
Assessment / Plan
Physical exam:
General: Acutely ill
HEENT: Normocephalic, Atraumatic and Moist Mucous Membranes
Respiratory: Bilateral coarse crackles; Negative Wheezes; Some scattered Rhonchi
Cardiac: Irregular rate and rhythm and S1/S2
GI: Soft, Nontender and Nondistended
Musculoskeletal: Bilateral lower extremity edema. No Clubbing, No Cyanosis
Neuro: Awake, Alert and Oriented, no gross neurological deficits. Generalized weakness
Psych: Calm
A/P:
1. Acute on chronic hypoxic hypercapnic respiratory failure
Multifactorial etiology
Cont oral diuretics
Off antibiotics
Cont oral prednisone tapering
Cont oxygen
Appreciated pulm input
Will likely need oxygen upon d/c but much less requirements now.
Updated son Ko prior
Medically ready for discharge
sr. strategic sourcing manager for discharge disposition
2. Leukocytosis
Trending down
3. Sepsis -POA - Improved. Contaminant/CONS
Recovering influenza A pneumonia
Superimposed bacterial pneumonia
-Completed course of antibiotics
4. COPD flareup
-Taper dexamethasone to oral steroids prednisone down to 20 mg p.o. daily and should be done soon
-No significant wheezing although poor air entry as well on exam
4. Paroxysmal A-fib with RVR - Improved
-Heart rate in range of 100-120 at admit
-Maintain on home dose of metoprolol
-Continue Eliquis
5. Dysphagia
mild cognitive impairment
-Speech therapy evaluated on IDDSI 6 diet
6. Oral candidiasis
Continue nystatin swish and swallow
7. Hypotension
Improved
Holding parameters to meds
9. Hyponatremia
Continue fluid restriction
Monitor sodium closely
Other medical problems:
essential hypertension
history of sick sinus syndrome post pacemaker placement
former smoker
history of appendectomy
history of vaginal prolapse repair
right ankle fracture repair
left TKR
history of cholecystectomy
DVT PPX - Eliquis
Code status: DNR
Anticipated Discharge: Within 24 hours
Subjective/Interval History
-
Date of Service: December 20, 2024
Patient is less short of breath and less oxygen requirements today. Remains afebrile. Tired overall
Objective Data
-
Labs:
Laboratory Results
12/20/24
06:11
WBC 15.2 H
Hgb 13.5
Hct 40.4
Plt Count 413 H
Sodium 132 L
Potassium 3.5
Chloride 84 L
Carbon Dioxide 38 H
BUN 40 H
Creatinine 0.6
Glucose 104 H
Calcium 8.7
Vital Signs:
Vital Signs
Temp Pulse Resp BP Pulse Ox
97.4 F 72 16 128/73 98
12/20/24 07:52 12/20/24 08:38 12/20/24 07:52 12/20/24 08:38 12/20/24 07:52
I&O
12/19/24 12/20/24 12/21/24
06:59 06:59 06:59
Intake Total 990 / 990 720 / 720
Balance 990 / 990 720 / 720
[2024-12-20 15:31] VITALS: BP 120/58
[2024-12-20] MEDS: DUONEB INH (15:54)
[2024-12-20] MEDS: FLORASTOR 250 MG PO (17:25)
[2024-12-20 23:57] VITALS: BP 134/68
[2024-12-21 06:00] VITALS: BMI 23.0
[2024-12-21 07:35] VITALS: BP 143/72
[2024-12-21] MEDS: PULMICORT 0.5 MG INH (07:54)
[2024-12-21] MEDS: DUONEB 3 ML INH ×2 (07:54→11:32)
[2024-12-21] MEDS: DELTASONE 20 MG PO (08:25)
[2024-12-21] MEDS: MYCOSTATIN ORAL SUSPENSION 5 ML PO ×3 (08:27→17:01)
[2024-12-21] MEDS: ELIQUIS 2.5 MG PO (08:27)
[2024-12-21] MEDS: LASIX 40 MG PO (08:27)
[2024-12-21] MEDS: LOPRESSOR 25 MG PO (08:27)
[2024-12-21] MEDS: PACERONE 200 MG PO (08:28)
--- NOTE | 2024-12-21 09:41 | PTCARENOTE ---
pt oob with 2 assist to the chair. this Nurse assisted by PT. per speech patient is cleared on their end for a regular diet. pt remains dyspneic on exertion and on 2L. pt shushing nurse as she is transferring to chair.
--- NOTE | 2024-12-21 11:31 | PTOTSP ---
Speech Therapy Follow-Up:
Reassessed swallow function at bedside. Current diet IDDSI 6/thins.
Adequate oral acceptance, slow but functional mastication of upgraded regular solids across all trials with respiratory status that appeared stable across bolus formation and swallow. No-trace lingual residue following regular trial that cleared
with cued dry swallow or liquid wash. No overt s/s aspiration across all PO trials assessed, unable to r/o at bedside. Patient continues to present with aspiration risk with improved tolerance of baseline diet this date.
Recommend:
1) Upgrade to regular solid diet with thin liquids
2) Supervision with meals
3) Aspiration precautions: slow rate, small bites/sips, rest breaks as needed, softer items as needed for energy conservation
ST to continue to follow to ensure diet tolerance.
--- NOTE | 2024-12-21 13:22 | CM ---
Addendum entered by Lauren Hampton RN 12/21/24 14:59:
CM updated the patient's son Ko via telephone regarding discharge.
Original Note:
Reviewed the chart notes and spoke with the patient at the bedside. IMM reviewed.
Plan: Discharge back to [facility] when medically stable.
Call report to: [phone] [address]
Fax report to: [phone]
Medical necessity and transport forms on chart.
--- NOTE | 2024-12-21 14:26 | W.PN.HOSP.TC ---
Addendum entered and electronically signed by Rigo Kingston MD 12/21/24 14:31:
Correction :
D/c NH
Original Note:
Today's Communication/Plan
-
d/c home
Assessment / Plan
Assessment / Plan
1. Acute on chronic hypoxic hypercapnic respiratory failure
-Multifactorial etiology
-wean off o2 as possible
-Discontinue further empiric Lasix at discharge-echocardiogram showed preserved EF.
-Finished course of abx
2. Leukocytosis
-Trending down
3. Sepsis -POA - Improved. Contaminant/CONS
Recovering influenza A pneumonia
Superimposed bacterial pneumonia
-Completed course of antibiotics
4. COPD flareup
-Dexamethasone transitioned to oral prednisone taper
-No significant wheezing although poor air entry as well on exam
4. Paroxysmal A-fib with RVR - Improved
-Heart rate in range of 100-120 at admit
-Maintain on home dose of metoprolol
-Continue Eliquis
5. Dysphagia
mild cognitive impairment
-Speech therapy evaluated on IDDSI 6 diet
6. Oral candidiasis
Continue nystatin swish and swallow
7. Hypotension
Improved
Holding parameters to meds
9. Hyponatremia
Continue fluid restriction
Monitor sodium closely
Other medical problems:
essential hypertension
history of sick sinus syndrome post pacemaker placement
former smoker
history of appendectomy
history of vaginal prolapse repair
right ankle fracture repair
left TKR
history of cholecystectomy
DVT PPX - Eliquis
Code status: DNR
Anticipated Discharge: Today
Subjective/Interval History
-
Date of Service: December 21, 2024
Resting comfortably in bed
Complaining of feeling exhausted
Objective Data
-
Vital Signs:
Vital Signs
Temp Pulse Resp BP Pulse Ox
98.2 F 73 18 143/72 94
12/21/24 07:35 12/21/24 08:28 12/21/24 07:55 12/21/24 08:28 12/21/24 11:18
I&O
12/20/24 12/21/24 12/22/24
06:59 06:59 06:59
Intake Total 720 / 720 435 / 435
Balance 720 / 720 435 / 435
Review of Systems
-
Respiratory: Reports No Symptoms
Cardiac: Reports No Symptoms
Abdomen/GI: Reports No Symptoms
Physical Exam
-
General: Comfortable
HEENT: Negative Oxygen
Respiratory: Clear to Auscultation
Cardiac: Regular Rhythm and S1/S2; Negative Murmur or Rub
GI: Soft, Nontender and Nondistended
Musculoskeletal: No Edema
Neuro: Awake, Alert, Oriented, No Motor Deficits and Nonfocal/Grossly Intact
Psych: Calm
[2024-12-21] MEDS: DUONEB INH (15:49)
[2024-12-21 15:55] VITALS: BP 113/57
[2024-12-21] MEDS: FLORASTOR 250 MG PO (17:01)
== END 2024-12-21 18:59 | DRG 871 ==
LOC: 2 NORTH 16:21
PROVIDERS: Hospitalist; Physician Assistant; ADMITTING PHYSICIAN Hospitalist; CONSULT PHYSICIAN Internal Medicine Critical Care Medicine; EMERGENCY PHYSICIAN Emergency Medicine; FAMILY PHYSICIAN Student in an Organized Health Care Education/Training Program
PROC: 5A09357 Assistance with Respiratory Ventilation, Less than 24 Consecutive Hours, Continuous Positive Airway Pressure (ICD-10-PCS; 2024-12-10)
PROC: 5A0935A Assistance with Respiratory Ventilation, Less than 24 Consecutive Hours, High Flow/Velocity Cannula (ICD-10-PCS; 2024-12-16)
PROC: 5A0935Z Assistance with Respiratory Ventilation, Less than 24 Consecutive Hours (ICD-10-PCS; 2024-12-17)
DX: A41.9 Sepsis, unspecified organism (principal); G92.8 Other toxic encephalopathy; J10.08 Influenza due to other identified influenza virus with other specified pneumonia; J96.01 Acute respiratory failure with hypoxia; J96.02 Acute respiratory failure with hypercapnia; J15.9 Unspecified bacterial pneumonia; I50.33 Acute on chronic diastolic (congestive) heart failure; Z66 Do not resuscitate; J44.0 Chronic obstructive pulmonary disease with (acute) lower respiratory infection; J44.1 Chronic obstructive pulmonary disease with (acute) exacerbation; B37.0 Candidal stomatitis; E87.1 Hypo-osmolality and hyponatremia; I11.0 Hypertensive heart disease with heart failure; I48.0 Paroxysmal atrial fibrillation; I49.5 Sick sinus syndrome; I95.9 Hypotension, unspecified; G31.84 Mild cognitive impairment of uncertain or unknown etiology; Z20.822 Contact with and (suspected) exposure to COVID-19; Z87.891 Personal history of nicotine dependence; Z96.652 Presence of left artificial knee joint; Z95.0 Presence of cardiac pacemaker; Z79.899 Other long term (current) drug therapy; Z79.01 Long term (current) use of anticoagulants
CPT/HCPCS: 71045; 71046; 80048; 80053; 82805; 83605; 83735; 83880; 84484; 85025; 85027; 87040; 87147; 87150; 87205; 87502; 87641; 87811; 92526; 92610; 93005; 93288; 93306; 94640; 94660; 96365; 96375; 97163; 97167; 97530; 99291

== ENCOUNTER → 2025-01-08 09:12 | Outpatient (REF) | payer MEDICARE, SELFPAY ==
[2025-01-08 11:28] LABS: INR 1.02; PT 13.7 Sec (11.4-14.6)
[2025-01-08 11:30] LABS: Hematocrit 36.2 % (37.0-47.0); Hemoglobin 11.7 g/dL (12.0-16.0); Mean Corp Hgb Conc. 32.3 g/dL (33.0-37.0); Mean Corpuscular Hgb 32.8 pg (27.0-31.0); Mean Corpuscular Volume 101.4 fL (81.0-99.0); Platelet Count 220 10^3/uL (130-400); Red Blood Cell Count 3.57 10^6/uL (4.20-5.40); Red Cell Dist. Width 15.5 % (11.5-14.5); White Blood Cell Count 6.4 10^3/uL (4.8-10.8)
== END ==
LOC: OLABN 09:12
PROVIDERS: ATTENDING PHYSICIAN Student in an Organized Health Care Education/Training Program
DX: Z79.01 Long term (current) use of anticoagulants (principal); D68.59 Other primary thrombophilia; I10 Essential (primary) hypertension
CPT/HCPCS: 36415; 85027; 85610

== ENCOUNTER 2025-01-28 02:22 | Emergency (ER) | payer MEDICARE, MEDICAID, SELFPAY ==
[2025-01-28 02:24] VITALS: BP 141/80; BMI 22.6
[2025-01-28 03:00] VITALS: BP 133/70
--- NOTE | 2025-01-28 03:18 | ED.GENMED ---
History of Present Illness
General
Chief Complaint: Nose Bleed
Source: patient, ambulance crew and [facility]
Exam Limitations: none
Time Seen by Provider: 01/28/25 02:38
Nursing documentation reviewed up to this point in time: agreed with
History of Present Illness
History of Present Illness:
This is an 84-year-old woman, resident of [facility]. She has history of A-fib chronically maintained on Eliquis.
She presents via EMS with onset of acute epistaxis that began approximately 2 hours prior to arrival. No recent trauma, she denies recent cold new or URI symptoms.
Moderate bleeding from bilateral nostrils. She denies recent nosebleeds and states it has been many years since she suffered a previous nosebleed.
She denies dizziness nor lightheadedness, no headache, no chest pain, no nausea nor vomiting.
Past History
Past History
ED Past Medical History: Arrthythmia (A fib), HTN and Other (Osteoarthritis)
ED Past Surgical History: Appendectomy, Cardiac (Pacemaker/defibrillator) and Gynecological
Social History
Tobacco: Former smoker
Alcohol: None
Drug: None
Living: [facility]
Family History
Family History: Other (Noncontributory)
Phy Exam
Physical Exam
Physical Exam:
GENERAL: Al 84-year-old woman appears her stated age, awake and alert, mildly anxious, frequently wiping and dabbing at her nose. Cooperative. Hemodynamically stable.
EYE: pupils equal and reactive. There is scant blood at medial canthus of the left eye. Anicteric
NECK: Supple, nontender, no meningismus, no significant adenopathy.
ENT: scant blood posterior pharynx, several large clots within bilateral nostrils, partially cleared with suction and with patient blowing her nose.
CARDIAC: Regular rate and rhythm. no murmur.
LUNGS: Clear breath sounds bilaterally, no acute respiratory distress, no wheezes/rales/rhonchi
ABDOMEN: Soft, nondistended, without focal tenderness
NEUROLOGICAL: Alert and oriented x3, no focal neuro deficits.
SKIN: Warm and dry, normal color, skin intact. No rash.
MUSCULOSKELETAL: No C/C/E. peripheral pulses are full and equal b/l. No palpable tenderness.
PSYCH: Mildly anxious. Cooperative.
Course
Vital Signs
Initial and Last Documented VS:
Initial Vital Signs
Temp Pulse Resp BP Pulse Ox
98.5 F 70 22 141/80 95
01/28/25 02:24 01/28/25 02:24 01/28/25 02:24 01/28/25 02:24 01/28/25 02:24
Last Documented Vital Signs
Temp Pulse Resp BP Pulse Ox
98.5 F 70 22 137/69 93
01/28/25 02:24 01/28/25 02:24 01/28/25 02:24 01/28/25 04:14 01/28/25 02:50
Procedures
Nosebleed
Drug treatment: Lidocaine and Epinephrine
Treatment: Silver nitrate cautery
Post treatment bleeding: none- good control
MDM/Problems Addressed
Differential Diagnosis Includes:
Patient presents with acute epistaxis, at this point unclear if this is anterior versus posterior.
She is at increased risk for epistaxis as she is chronically maintained on Eliquis.
Reassuring vital signs.
No history of similar episodes in the past.
At this point no indication for imaging nor laboratory studies.
Chronic conditions affecting care: HTN and Arrhythmia
*Pulse Oximetry
Patient hypoxic: no
*Critical Care Note
Total Time (30-74mins, 75-104mins- exclusive of procedures): Not Applicable
Update Note
Update Note:
03:30
Bilateral nostrils cleared of clots with patient blowing as well as with suction.
Cotton soaked pledget with epinephrine/lidocaine placed within the left nostril.
Upon reexamination noted to have small pinpoint bleeding from left anterior septum. This was successfully cauterized with silver nitrate.
Patient tolerated procedure well.
Will continue to observe.
Discussed importance of avoiding blowing, wiping, picking her nose.
04:10
Nasal septum remains dry. No recurrent bleeding.
Will hold off on packing.
Will discharge back to [facility] for continued care.
Recommend holding Eliquis for today, may resume tomorrow.
Recommend initiation of saline nasal spray beginning February 01.
Will refer to ENT for follow-up.
ED Attending Note
-
Portions of this chart may have been created with voice recognition software.� Occasional wrong word or��sound alike� substitutions may have occurred due to the inherent limitations of voice recognition software.
Discharge Plan
Departure
Patient Disposition: Correction/SNF
Date of Disposition: 01/28/25
Time of Disposition: 04:09
Discharge Problem:
Anterior epistaxis left nostril
Instructions: Nosebleeds (DC)
Prescriptions:
New
sodium chloride 0.65 % aerosol,spray
2 spray intranasal BID Qty: 30 0RF
Rx Instructions:
to begin 02/01/25
No Action
acetaminophen 325 MG tablet
650 mg PO Q4HPRN PRN (Reason: mild pain)
Eliquis 2.5 MG tablet
2.5 mg PO BID 0RF
ipratropium-albuterol 0.5 mg-3 mg(2.5 mg base)/3 mL Solution For Nebulization
3 ml INHALATION R QID
magnesium hydroxide [Milk of Magnesia] 400 mg/5 mL Suspension
2,400 mg PO HSPRN PRN (Reason: constipation)
bisacodyl [Dulcolax (bisacodyl)] 10 mg Suppository
10 mg DE [id number] PRN (Reason: if no bm aftr mom)
Saccharomyces boulardii [Florastor] 250 mg Capsule
250 mg PO QPM
amiodarone [Pacerone] 200 MG tablet
200 mg PO DAILY
metoprolol tartrate 25 MG tablet
25 mg PO BID
prednisone 10 mg Tablet
See Rx Instructions .ROUTE .COMPLEX Qty: 10 0RF
Rx Instructions:
Take 2 Tablets for 3 days THEN
Take 1 Tablet for 3 days THEN stop
Referrals:
UNKNOWN - PT DOES,NOT KNOW [Family Provider] -
Dahiana Cooper MD [Active] - Call in 1-3 days for appt
Activity Restrictions/Additional Instructions:
Over the next 3 days, no blowing, no sniffing, no picking your nose. I want you to also avoid wiping your nose.
Anterior septum of the left nostril has been cauterized with silver nitrate. This was the site of bleeding.
Adelaida should schedule follow-up appointment with ENT for recheck/reevaluation.
Hold Eliquis dosing for today, January 28. You may resume Eliquis tomorrow, January 29.
Beginning February 01, start saline nasal spray, 2 sprays each nostril twice daily.
Interventions
Interventions:
*Risk Screen - Suicide Last Done: 01/28/25 02:24
*General Assessment Last Done: 01/28/25 02:24
*Neglect/Abuse Screening Last Done: 01/28/25 02:24
*ED- Fall Risk Assessment Last Done: 01/28/25 02:37
*ED COVID-19 Vaccine History Last Done: 01/28/25 02:36
*Nursing Disposition Last Done: 01/28/25 04:59
ED-EENT Assessment Last Done: 01/28/25 02:36
Discharge Date and Time
Discharge Date/Time: 01/28/25 05:00
Print Language: BAHAMIAN
[2025-01-28 04:14] VITALS: BP 137/69
== END 2025-01-28 05:00 ==
LOC: EMR 02:22
PROVIDERS: EMERGENCY PHYSICIAN Emergency Medicine
DX: R04.0 Epistaxis (principal); I48.91 Unspecified atrial fibrillation; I10 Essential (primary) hypertension; Z79.01 Long term (current) use of anticoagulants; Z87.891 Personal history of nicotine dependence; Z95.810 Presence of automatic (implantable) cardiac defibrillator
CPT/HCPCS: 30901; 99282

== ENCOUNTER 2025-05-12 10:49 | Emergency (ER) | payer MEDICARE, MEDICAID, SELFPAY ==
[2025-05-12 10:54] VITALS: BMI 26.2
--- NOTE | 2025-05-12 10:58 | ED.GENMED ---
History of Present Illness
General
Chief Complaint: Fall
Source: patient and ambulance crew
Exam Limitations: none
Time Seen by Provider: 05/12/25 10:52
History of Present Illness
History of Present Illness:
84yoF with a history of hypertension, COPD, CHF, pacemaker presenting via EMS for evaluation of a fibular neck fracture. Patient had a fall at her halfway yesterday and injured her right leg. She denies any head strike or LOC. Patient was
having right ankle pain after the incident and x-rays were obtained which showed a nondisplaced fibular neck fracture. She was sent to the ED for evaluation. Patient denies any other symptoms at this time. Specifically, she denies any headache,
neck pain, back pain.
Past History
Past History
ED Past Medical History: Arrthythmia (A fib), HTN and Other (Osteoarthritis)
ED Past Surgical History: Appendectomy, Cardiac (Pacemaker/defibrillator) and Gynecological
Social History
Tobacco: Former smoker
Alcohol: None
Drug: None
Living: halfway
Family History
Family History: Other (Noncontributory)
Phy Exam
General Physical Exam
General Presentation: well appearing and no apparent distress
General Skin: warm and dry
General Habitus: normal
General Mental: alert
Neurological Exam
Neurological Exam: alert
[place] Coma Scale
Eye Opening: Spontaneous
Verbal Response: Oriented
Motor Response: Obeys Commands
GCS Total Score: 15
Musculoskeletal Exam
Musculoskeletal Exam: other (+Tenderness to proximal fibula. Pain with knee flexion. Skin intact and no significant soft tissue swelling. ROM of ankle intact. 2+ DP pulse.)
Skin Exam
Skin Exam: normal color and warm/dry
Psychiatric Exam
Psychiatric Exam: normal mood/affect
Course
Orders/Labs/Results
Orders:
Orders
05/12/25 10:57
CR Ankle - Right Min 3 Views * Urgent
Comment:
Reason For Exam: injury
CR Knee- Right 4 Or More View* Urgent
Comment:
Reason For Exam: injury
CR Leg Tibia/fibula Right 2 Vw Urgent
Comment:
Reason For Exam: injury
05/12/25 12:04
Knee Immobilizer Right-Treatme ONCE
Vital Signs
Initial and Last Documented VS:
Initial Vital Signs
Temp
97.9 F
05/12/25 10:54
Last Documented Vital Signs
Temp BP Pulse Ox
97.9 F 136/63 91
05/12/25 10:54 05/12/25 13:00 05/12/25 13:00
MDM/Problems Addressed
Differential Diagnosis Includes:
84yoF presenting after a proximal fibular fx was seen on outpatient x-rays after a fall yesterday. Denies other injuries/concerns. There is tenderness on exam. No deformity. RLE is neurovascularly intact. Differential diagnosis includes: fracture,
dislocation, sprain, no evidence of compartment syndrome
X-rays of knee, tib/fib, and ankle obtained. Imaging confirms a mildly displaced proximal fibular fracture. Images sent to Dr. Castellanos. Orthopedics recommending knee immobilizer and WBAT. Recommendations discussed with patient and she was instructed
to f/u outpatient with orthopedics. She was discharged in stable condition.
*Pulse Oximetry
Patient hypoxic: no (93%)
*Critical Care Note
Total Time (30-74mins, 75-104mins- exclusive of procedures): Not Applicable
ED Attending Note
-
Portions of this chart may have been created with voice recognition software.� Occasional wrong word or��sound alike� substitutions may have occurred due to the inherent limitations of voice recognition software.
Discharge Plan
Departure
Patient Disposition: Home (Routine Discharge)
Date of Disposition: 05/12/25
Time of Disposition: 12:21
Patient with high blood pressure during this ER visit?: No
Discharge Problem:
Closed fracture of fibula, proximal, right
Instructions: Lower leg fracture
Prescriptions:
No Action
acetaminophen 325 MG tablet
650 mg PO Q4HPRN PRN (Reason: mild pain)
Eliquis 2.5 MG tablet
2.5 mg PO BID 0RF
ipratropium-albuterol 0.5 mg-3 mg(2.5 mg base)/3 mL Solution For Nebulization
3 ml INHALATION R QID
magnesium hydroxide [Milk of Magnesia] 400 mg/5 mL Suspension
2,400 mg PO HSPRN PRN (Reason: constipation)
bisacodyl [Dulcolax (bisacodyl)] 10 mg Suppository
10 mg CA [id number] PRN (Reason: if no bm aftr mom)
Saccharomyces boulardii [Florastor] 250 mg Capsule
250 mg PO QPM
amiodarone [Pacerone] 200 MG tablet
200 mg PO DAILY
metoprolol tartrate 25 MG tablet
25 mg PO BID
prednisone 10 mg Tablet
See Rx Instructions .ROUTE .COMPLEX Qty: 10 0RF
Rx Instructions:
Take 2 Tablets for 3 days THEN
Take 1 Tablet for 3 days THEN stop
sodium chloride 0.65 % aerosol,spray
2 spray intranasal BID Qty: 30 0RF
Rx Instructions:
to begin 02/01/25
Referrals:
Isidro Castellanos MD [Active, Orthopedics]
Jv Snell DO [Family Provider, Family Practice]
Activity Restrictions/Additional Instructions:
Wear a knee immobilizer. You may bear weight as tolerated.
Please call today to schedule a follow-up appointment with orthopedics.
Interventions
Interventions:
*Risk Screen - Suicide Last Done: 05/12/25 10:54
*General Assessment Last Done: 05/12/25 10:54
*Neglect/Abuse Screening Last Done: 05/12/25 10:54
*ED- Fall Risk Assessment Last Done: 05/12/25 11:01
*ED COVID-19 Vaccine History Last Done: 05/12/25 10:54
*Nursing Disposition Last Done: 05/12/25 14:01
ED-Musculoskeletal Assessment Last Done: 05/12/25 10:54
ED- Neurological Assessment Last Done: 05/12/25 10:54
ED-Skin Assessment Last Done: 05/12/25 10:54
Discharge Date and Time
Discharge Date/Time: 05/12/25 14:02
Print Language: NIUEAN
[2025-05-12 11:00] VITALS: BP 113/50
[2025-05-12 12:54] VITALS: BP 133/63
[2025-05-12 13:00] VITALS: BP 136/63
== END 2025-05-12 14:02 | disposition home or self-care (01) ==
LOC: EMR 10:49
PROVIDERS: EMERGENCY PHYSICIAN Emergency Medicine; FAMILY PHYSICIAN Student in an Organized Health Care Education/Training Program
DX: S82.831A Other fracture of upper and lower end of right fibula, initial encounter for closed fracture (principal); W19.XXXA Unspecified fall, initial encounter; Y92.129 Unspecified place in nursing home as the place of occurrence of the external cause; I11.0 Hypertensive heart disease with heart failure; I50.9 Heart failure, unspecified; J44.9 Chronic obstructive pulmonary disease, unspecified; M19.90 Unspecified osteoarthritis, unspecified site; Z87.891 Personal history of nicotine dependence; Z90.49 Acquired absence of other specified parts of digestive tract; Z95.0 Presence of cardiac pacemaker
CPT/HCPCS: 99283; 73564; 73590; 73610

== ENCOUNTER → 2025-06-08 09:09 | Outpatient (REF) | payer MEDICARE, SELFPAY ==
[2025-06-08 10:04] LABS: ALT (SGPT) 15 U/L (0-35); AST (SGOT) 25 U/L (14-36); Albumin 3.4 g/dl (3.5-5.0); Alkaline Phosphatase 78 U/L (38-126); Total Protein 5.9 g/dl (6.3-8.2)
[2025-06-08 10:34] LABS: TSH 3.34 uIU/ml (0.47-4.68)
== END ==
LOC: OLABN 09:09
PROVIDERS: ATTENDING PHYSICIAN Student in an Organized Health Care Education/Training Program
DX: E78.5 Hyperlipidemia, unspecified (principal); Z87.891 Personal history of nicotine dependence
CPT/HCPCS: 36415; 80076; 84443

== ENCOUNTER 2025-09-17 22:25 | Emergency (ER) | payer MEDICARE, SELFPAY ==
[2025-09-17 22:35] VITALS: BP 125/70; BMI 27.6
--- NOTE | 2025-09-17 22:39 | ED.GENMED ---
History of Present Illness
General
Chief Complaint: Musculo-Skeletal Complaint
Source: patient
Exam Limitations: altered mental status
Time Seen by Provider: 09/17/25 22:26
Nursing documentation reviewed up to this point in time: agreed with
History of Present Illness
History of Present Illness:
84-year-old female for Darvin Polanco COPD not on oxygen had a fall earlier today told everything was okay having some pain in her right hip possibly hit her head, found to be hypoxic confused brought to the ER here sats in the low 80s placed on
oxygen wheezing
Past History
Past History
ED Past Medical History: Arrthythmia (A fib), COPD, HTN and Other (Osteoarthritis)
ED Past Surgical History: Appendectomy, Cardiac (Pacemaker/defibrillator) and Gynecological
Social History
Tobacco: Former smoker
Alcohol: None
Drug: None
Living: [facility]
Employment: Retired
Family History
Family History: Other (Noncontributory)
Review of Systems
Review of Systems
Unable to obtain full review of systems at this time due to: due to acuity
All Other Systems: Not applicable
Respiratory: Reports cough
Musculoskeletal: Reports joint pain
Phy Exam
Physical Exam
Physical Exam:
Physical Exam
General: Ill-appearing female
Neck: No tongue
Heart: s1/s2 regular rate and rhythm, no murmur. equal radial pulses.
Lungs: Rhonchi wheeze
Abdomen: Nontender
Neuro: Confused grossly nonfocal
Skin: no rash
Psychiatric: Cooperative
Extremities: Pain in the right hip with range of motion
Course
Orders/Labs/Results
Orders:
Orders
09/17/25 22:36
CT Cervical Spine W/o Iv Contr Urgent
Comment:
Reason For Exam: fall
CT Chest PE Study Urgent
Comment:
Reason For Exam: sob
CT Head W/o Iv Contrast Urgent
Comment:
Reason For Exam: fall
09/17/25 22:37
Electrocardiogram (*1) Stat
Reason for Study: Other
Other Reason for Exam: pneumonia
Cardiac Monitoring- Treatment ONCE
EKG- Treatment ONCE
09/17/25 22:38
Comprehensive Metabolic Panel Urgent
NT-proBNP Urgent
Troponin I Urgent
Blood Culture Urgent
JACOB Source: Blood/Venous
Specimen Description:
09/17/25 22:39
ABG [Arterial Blood Gas] Urgent
%Oxygen/Room Air: 4
Complete Blood Count/With Diff Urgent
09/18/25
CT Pelvis W/o Iv Contrast Urgent
Reason For Exam: fall
09/18/25 01:23
Ipratropium/Albuterol Sulfate [Duoneb] 3 ml INH R NOW STA
Abnormal Lab Results
09/17/25 09/17/25 09/18/25
22:38 22:39 00:08
RBC 3.78 L 10^6/uL
(4.20-5.40)
Hgb 10.9 L g/dL
(12.0-16.0)
Hct 34.0 L %
(37.0-47.0)
MCHC 32.1 L g/dL
(33.0-37.0)
RDW 16.1 H %
(11.5-14.5)
Abs Immat Gran (auto) 0.1 H 10^3/uL
(0-0.05)
Absolute Neuts (auto) 8.2 H 10^3/uL
(1.4-6.5)
Absolute Monos (auto) 1.1 H 10^3/uL
(0.1-0.6)
Immature Gran % 0.6 H %
(0-0.5)
Neutrophils % 76.5 H %
(42.2-75.2)
Lymphocytes % 11.9 L %
(20.5-51.1)
Monocytes % 9.9 H %
(1.7-9.3)
pCO2 57 H mmHg
(32-35)
pO2 82 L mmHg
(83-108)
HCO3 33.0 H mmol/L
(21-28)
Sodium 131 L mmol/L
(135-145)
Carbon Dioxide 32 H mmol/L
(22-30)
BUN 23 H mg/dl
(7-17)
09/17/25 22:39
09/17/25 22:38
Vital Signs
Initial and Last Documented VS:
Initial Vital Signs
Temp Pulse Resp BP Pulse Ox
98.7 F 70 14 125/70 97
09/17/25 22:35 09/17/25 22:35 09/17/25 22:35 09/17/25 22:35 09/17/25 22:35
Last Documented Vital Signs
Temp Pulse Resp BP Pulse Ox
98.7 F 70 22 116/62 99
09/17/25 22:35 09/17/25 23:45 09/17/25 23:45 09/17/25 23:00 09/17/25 23:45
MDM/Problems Addressed
Differential Diagnosis Includes:
COPD PE pneumonia heart failure hip fracture head and neck trauma hypercarbia
MDM/Problems Addressed:
Fall shortness of breath
Chronic conditions affecting care: COPD
Acute Exacerbation and/or Progression of Chronic Illness: COPD
*Pulse Oximetry
SaO2: 80
Nasal Cannula flow liters per minute: 0
Oxygen Mode of Delivery: Room air
Patient hypoxic: yes
*EKG
Interpreted by ED Provider?: Yes
Interpretation: normal
Comparison EKG: no comparison EKG present
Heart Rate: 78
Rate: normal
Rhythm: sinus
Ischemia: non-specific ST changes
*Quantitative Researcher Interpretation
Rate: normal
Interpretation: normal
Heart Rate: 78
Rhythm: sinus
*Critical Care Note
Total Time (30-74mins, 75-104mins- exclusive of procedures): 31
Update Note
Update Note:
1:30 AM
Patient clinically improved from earlier though still hypoxic 91% on
2 L still some wheeze labs are noted images noted reports pending will give another neb will likely require admission not on oxygen at home
Update patient radiology reports noted
Up-to-date reviewed, I do not believe she is going to be a surgical candidate for her nondisplaced acetabular fracture I did send a message to orthopedics on-call to confirm
4 AM patient now tells me she would like to go home I did review everything with her multiple times she is adamant
ED Attending Note
-
Portions of this chart may have been created with voice recognition software.� Occasional wrong word or��sound alike� substitutions may have occurred due to the inherent limitations of voice recognition software.
Discharge Plan
Departure
Patient Disposition: Home (Routine Discharge)
Date of Disposition: 09/18/25
Time of Disposition: 04:09
Patient with high blood pressure during this ER visit?: No
Condition: Good
Discharge Problem:
Chronic obstructive pulmonary disease with (acute) exacerbation
Prescriptions:
No Action
acetaminophen 325 MG tablet
650 mg PO Q4HPRN PRN (Reason: mild pain)
Eliquis 2.5 MG tablet
2.5 mg PO BID 0RF
ipratropium-albuterol 0.5 mg-3 mg(2.5 mg base)/3 mL Solution For Nebulization
3 ml INHALATION R QID
magnesium hydroxide [Milk of Magnesia] 400 mg/5 mL Suspension
2,400 mg PO HSPRN PRN (Reason: constipation)
bisacodyl [Dulcolax (bisacodyl)] 10 mg Suppository
10 mg IA [id number] PRN (Reason: if no bm aftr mom)
Saccharomyces boulardii [Florastor] 250 mg Capsule
250 mg PO QPM
amiodarone [Pacerone] 200 MG tablet
200 mg PO DAILY
metoprolol tartrate 25 MG tablet
25 mg PO BID
prednisone 10 mg Tablet
See Rx Instructions .ROUTE .COMPLEX Qty: 10 0RF
Rx Instructions:
Take 2 Tablets for 3 days THEN
Take 1 Tablet for 3 days THEN stop
sodium chloride 0.65 % aerosol,spray
2 spray intranasal BID Qty: 30 0RF
Rx Instructions:
to begin 02/01/25
Referrals:
Jv Snell DO [Family Provider, Family Practice]
Interventions
Interventions:
*Risk Screen - Suicide Last Done: 09/17/25 22:35
*General Assessment Last Done: 09/17/25 22:35
*Neglect/Abuse Screening Last Done: 09/17/25 22:35
*ED- Fall Risk Assessment Last Done: 09/17/25 22:35
*ED COVID-19 Vaccine History Last Done: 09/17/25 22:35
*ED Influenza Vaccine History Last Done: 09/17/25 22:35
ED-Musculoskeletal Assessment Last Done: 09/17/25 22:45
Discharge Date and Time
Print Language: SCOTTISH
[2025-09-17 23:00] VITALS: BP 116/62
[2025-09-17 23:23] LABS: Hematocrit 34.0 % (37.0-47.0); Hemoglobin 10.9 g/dL (12.0-16.0); Mean Corp Hgb Conc. 32.1 g/dL (33.0-37.0); Mean Corpuscular Volume 89.9 fL (81.0-99.0); Nucleated Red Blood Cells % 0 %; Platelet Count 336 10^3/uL (130-400); Red Cell Dist. Width 16.1 % (11.5-14.5)
[2025-09-17 23:44] LABS: ALT (SGPT) 29 U/L (0-35); AST (SGOT) 33 U/L (14-36); Albumin 3.5 g/dl (3.5-5.0); Alkaline Phosphatase 93 U/L (38-126); Blood Urea Nitrogen 23 mg/dl (7-17); Calcium 9.2 mg/dl (8.4-10.2); Carbon Dioxide 32 mmol/L (22-30); Chloride 98 mmol/L (98-107); Estimated Creatinine Clearance 51 ml/min; Glucose 97 mg/dl (70-99); Potassium 4.4 mmol/L (3.5-5.1); Sodium 131 mmol/L (135-145); Total Protein 6.4 g/dl (6.3-8.2); eGFR > 60.00
[2025-09-17 23:57] LABS: Troponin I < 0.012 ng/ml
[2025-09-18] VITALS (8 sets, daily range): BP systolic 115–132; BP diastolic 49–75
[2025-09-18 00:24] LABS: B.E. 6.3 mmol/L; HCO3 33.0 mmol/L (21-28); O2 Saturation % 98.0 % (94-98); PCO2 57 mmHg (32-35); PO2 82 mmHg (83-108)
[2025-09-18] MEDS: DUONEB 3 ML INH (01:30)
== END 2025-09-18 09:30 | disposition home or self-care (01) ==
LOC: EMR 22:25
PROVIDERS: EMERGENCY PHYSICIAN Emergency Medicine; FAMILY PHYSICIAN Student in an Organized Health Care Education/Training Program
DX: J44.0 Chronic obstructive pulmonary disease with (acute) lower respiratory infection (principal); I48.91 Unspecified atrial fibrillation; I10 Essential (primary) hypertension; Z45.018 Encounter for adjustment and management of other part of cardiac pacemaker; Z87.891 Personal history of nicotine dependence; Z90.49 Acquired absence of other specified parts of digestive tract
CPT/HCPCS: 99284; 94640; 70450; 71275; 72125; 72192; 80053; 82805; 83880; 84484; 85025; 87040; 93005; Q9967

== ENCOUNTER → 2025-10-28 09:55 | Outpatient (REF) | payer MEDICARE, SELFPAY ==
[2025-10-28 11:16] LABS: Hematocrit 35.0 % (37.0-47.0); Hemoglobin 10.9 g/dL (12.0-16.0); Mean Corp Hgb Conc. 31.1 g/dL (33.0-37.0); Mean Corpuscular Volume 95.6 fL (81.0-99.0); Nucleated Red Blood Cells % 0 %; Platelet Count 359 10^3/uL (130-400); Red Cell Dist. Width 18.6 % (11.5-14.5)
[2025-10-28 11:29] LABS: Blood Urea Nitrogen 25 mg/dl (7-17); Calcium 8.5 mg/dl (8.4-10.2); Carbon Dioxide 30 mmol/L (22-30); Chloride 99 mmol/L (98-107); Glucose 82 mg/dl (70-99); Magnesium 2.0 mg/dl (1.6-2.3); Potassium 4.3 mmol/L (3.5-5.1); Sodium 132 mmol/L (135-145); eGFR > 60.00
== END ==
LOC: OLABN 09:55
PROVIDERS: ATTENDING PHYSICIAN Student in an Organized Health Care Education/Training Program
DX: Z79.01 Long term (current) use of anticoagulants (principal); I48.20 Chronic atrial fibrillation, unspecified
CPT/HCPCS: 36415; 80048; 83735; 85025

== ENCOUNTER → 2025-10-28 15:10 | Outpatient (REF) | payer MEDICARE, SELFPAY ==
[2025-10-29 13:30] LABS: Urine Character Clear (Clear)
[2025-10-29 13:47] LABS: Urine Red Blood Cell None Seen /HPF (0-2)
== END ==
LOC: OLABN 15:10
PROVIDERS: ATTENDING PHYSICIAN Student in an Organized Health Care Education/Training Program
DX: R35.0 Frequency of micturition (principal); Z79.01 Long term (current) use of anticoagulants
CPT/HCPCS: 81003; 81015; 87077; 87086